=== PATIENT | male | born 1985 | race Two or more races ===

== ENCOUNTER 2020-04-27 11:38 | Outpatient (REF) | payer OTHER, SELFPAY ==
[2020-04-27 12:56] LABS: Alanine Aminotransferase 82 U/L (0-40); Albumin Level 4.8 g/dL (3.5-5.0); Alkaline Phosphatase 64 U/L (39-117); Anion Gap 13 (12-20); Aspartate Amino Transferase 39 U/L (5-37); Bilirubin Total 0.7 mg/dL (0.0-1.0); Blood Urea Nitrogen 17 mg/dL (9-16); Calcium 9.6 mg/dL (8.4-10.2); Carbon Dioxide 29 mmol/L (22-29); Chloride 103 mmol/L (96-108); Estimated Glomerular Filt Rate > 60; Glucose Fasting 92 mg/dL (60-99); Potassium 4.7 mmol/l (3.3-5.1); Sodium 140 mmol/L (135-145); Total Protein 7.8 g/dL (6.5-8.0)
[2020-04-27 13:13] LABS: Estimated Average Glucose 94 mg/dL; Hemoglobin A1c % 4.9 %
[2020-04-27 13:19] LABS: TSH reflex Free T4 0.81 mIU/mL (0.32-4.0)
== END 2020-04-27 11:39 | disposition home or self-care (01) ==
LOC: HO.LAB 11:38
PROVIDERS: PCP Physician Assistant; Visit Provider Physician Assistant
DX: Z20.828 Contact with and (suspected) exposure to other viral communicable diseases (principal); G47.00 Insomnia, unspecified; K21.9 Gastro-esophageal reflux disease without esophagitis; F32.9 Major depressive disorder, single episode, unspecified; M96.1 Postlaminectomy syndrome, not elsewhere classified; Z13.1 Encounter for screening for diabetes mellitus; Z13.29 Encounter for screening for other suspected endocrine disorder
CPT/HCPCS: 80053; 83036; 84443; 87635

== ENCOUNTER 2020-04-28 04:50 | Outpatient (REF) | payer OTHER, SELFPAY | END 2020-04-28 04:51 | disposition home or self-care (01) | LOC: HO.LAB 04:50 | PROVIDERS: PCP Physician Assistant; Visit Provider Internal Medicine | DX: Z20.828 Contact with and (suspected) exposure to other viral communicable diseases (principal) | CPT/HCPCS: 87635 ==

== ENCOUNTER 2020-06-28 09:03 | Outpatient (REF) | payer OTHER, SELFPAY ==
[2020-06-28 10:18] LABS: Alanine Aminotransferase 84 U/L (0-40); Albumin Level 4.5 g/dL (3.5-5.0); Alkaline Phosphatase 57 U/L (39-117); Anion Gap 10 (12-20); Aspartate Amino Transferase 39 U/L (5-37); Bilirubin Total 0.5 mg/dL (0.0-1.0); Blood Urea Nitrogen 15 mg/dL (9-16); Calcium 9.1 mg/dL (8.4-10.2); Carbon Dioxide 28 mmol/L (22-29); Chloride 104 mmol/L (96-108); Estimated Glomerular Filt Rate > 60; Glucose Fasting 92 mg/dL (60-99); Potassium 4.2 mmol/l (3.3-5.1); Sodium 138 mmol/L (135-145); Total Protein 7.3 g/dL (6.5-8.0)
[2020-06-28 10:43] LABS: Estimated Average Glucose 100 mg/dL; Hemoglobin A1c % 5.1 %
== END 2020-06-28 09:04 | disposition home or self-care (01) ==
LOC: HO.LAB 09:03
PROVIDERS: PCP Physician Assistant; Visit Provider Physician Assistant
DX: R79.89 Other specified abnormal findings of blood chemistry (principal); Z13.1 Encounter for screening for diabetes mellitus
CPT/HCPCS: 80053; 83036

== ENCOUNTER 2020-07-20 08:15 | Outpatient (REF) | payer OTHER, SELFPAY ==
--- NOTE | 2020-07-20 08:18 | EMG_ITS ---
Bilateral tibial and peroneal motor studies were performed. Bilateral superficial peroneal and sural sensory studies were performed. Tibial H reflexes were obtained and paraspinal muscles were tested with a needle. IMPRESSION: Other than mild bilateral superficial sensory neuropathy, no significant abnormality was noted on this study. MD IRMA Blackburn/BRUCE / [id number]
== END 2020-07-20 08:16 | disposition home or self-care (01) ==
LOC: HO.NEURO 08:15
PROVIDERS: Visit Provider Physician Assistant
DX: M96.1 Postlaminectomy syndrome, not elsewhere classified (principal); R29.898 Other symptoms and signs involving the musculoskeletal system
CPT/HCPCS: 95886; 95911

== ENCOUNTER → 2020-07-24 08:47 | Outpatient (BNVA) | payer OTHER, SELFPAY | PROVIDERS: PCP Physician Assistant; Visit Provider Physician Assistant ==

== ENCOUNTER → 2020-08-17 10:07 | Outpatient (BNVA) | payer OTHER, SELFPAY | PROVIDERS: PCP Physician Assistant; Visit Provider Surgery Vascular Surgery | DX: I73.9 Peripheral vascular disease, unspecified (principal) | CPT/HCPCS: 99202 ==

== ENCOUNTER 2020-08-24 12:44 | Outpatient (REF) | payer OTHER, SELFPAY ==
--- NOTE | ~2020-08-24 | US_ITS ---
EXAMINATION: COLOR-FLOW DUPLEX IMAGING OF THE BILATERAL LOWER EXTREMITY ARTERIAL SYSTEM. VELOCITY MEASUREMENTS THROUGHOUT THE FEMORAL ARTERIES WITH ANKLE-BRACHIAL PERIPHERAL ARTERIAL TESTING. CLINICAL INFORMATION: This is a 35-year-old male with bilateral peripheral vascular disease. Interventional Radiologist: Robbie El M.D., F.S.I.R., F.A.C.R. RIGHT FEMORAL RUNOFF VELOCITIES: The right common femoral artery measures 145 cm/s and triphasic. The right profunda femoral artery is 92 cm/s and is triphasic. Right proximal superficial femoral artery measures 123 cm/s and triphasic. Mid superficial femoral artery is 130 cm/s and triphasic. Distal right superficial femoral artery measures 99 cm/s and is triphasic. Right popliteal velocity measures 67 cm/s and is triphasic. The posterior tibial artery velocity measures 82 cm/s and was triphasic. The right ankle-brachial index is 1.14. LEFT FEMORAL RUNOFF VELOCITIES: The left common femoral artery measures 116 cm/s and triphasic. The left profunda femoral artery is 105 cm/s and is triphasic. Left proximal superficial femoral artery measures 116 cm/s and triphasic. Mid superficial femoral artery is 105 cm/s and triphasic. Distal left superficial femoral artery measures 104 cm/s and is triphasic. Left popliteal velocity measures 63 cm/s and is triphasic. The posterior tibial artery velocity measures 93 cm/s and was triphasic. The left ankle brachial index is 1.19. US/US VARSHA complete IMPRESSION: 1. Normal bilateral resting peripheral arterial testing without evidence of hemodynamically significant stenosis.
--- NOTE | ~2020-08-24 | US_ITS ---
EXAMINATION: COLOR-FLOW DUPLEX IMAGING OF THE BILATERAL LOWER EXTREMITY ARTERIAL SYSTEM. VELOCITY MEASUREMENTS THROUGHOUT THE FEMORAL ARTERIES WITH ANKLE-BRACHIAL PERIPHERAL ARTERIAL TESTING. CLINICAL INFORMATION: This is a 35-year-old male with bilateral peripheral vascular disease. Interventional Radiologist: Robbie El M.D., F.S.I.R., F.A.C.R. RIGHT FEMORAL RUNOFF VELOCITIES: The right common femoral artery measures 145 cm/s and triphasic. The right profunda femoral artery is 92 cm/s and is triphasic. Right proximal superficial femoral artery measures 123 cm/s and triphasic. Mid superficial femoral artery is 130 cm/s and triphasic. Distal right superficial femoral artery measures 99 cm/s and is triphasic. Right popliteal velocity measures 67 cm/s and is triphasic. The posterior tibial artery velocity measures 82 cm/s and was triphasic. The right ankle-brachial index is 1.14. LEFT FEMORAL RUNOFF VELOCITIES: The left common femoral artery measures 116 cm/s and triphasic. The left profunda femoral artery is 105 cm/s and is triphasic. Left proximal superficial femoral artery measures 116 cm/s and triphasic. Mid superficial femoral artery is 105 cm/s and triphasic. Distal left superficial femoral artery measures 104 cm/s and is triphasic. Left popliteal velocity measures 63 cm/s and is triphasic. The posterior tibial artery velocity measures 93 cm/s and was triphasic. The left ankle brachial index is 1.19. US/US arterial duplex LE BI IMPRESSION: 1. Normal bilateral resting peripheral arterial testing without evidence of hemodynamically significant stenosis.
== END 2020-08-24 12:45 | disposition home or self-care (01) ==
LOC: HO.US 12:44
PROVIDERS: Visit Provider Surgery Vascular Surgery
DX: I70.213 Atherosclerosis of native arteries of extremities with intermittent claudication, bilateral legs (principal)
CPT/HCPCS: 93923; 93925

== ENCOUNTER 2020-08-28 08:32 | Outpatient (REF) | payer OTHER, SELFPAY ==
--- NOTE | 2020-08-30 08:49 | MHC.AU.P13 ---
Adult Audiological Evaluation Date of Visit: 08/28/20 Candy [place] Attendant Used: Not Applicable Reason for Appointment: Audiologic evaluation due to question of hearing loss and long-standing history of ear pain. Does patient feel they have a hearing loss?: Yes If Yes, Which Ear?: Both Ears When Was Hearing Difficulty First Noticed?: Childhood Has hearing been tested previously?: No Hearing Handicap Inventory: HHIE SCORE: 28 Based on HHIE score, patient has: Severe perceived hearing handicap Ear History: Recent Ear Pain: Both Ears Family History of Hearing Loss?: Yes: Grandmother Ear Infections in Childhood: Both Ears Bothersome Tinnitus/Ringing/Noises in Ears: Both Ears Ear used on the phone: Right Ear Blocked/Full Sensation in Ear(s): Both Ears History of occupational noise exposure?: No History: History: No Medical History: Medical History: Heart Problems High Blood Pressure Medical History: Multiple Ventricular Ablations *EXPERIENCES CONSTANT CONGESTION AND THROAT CLEARING *EXPERIENCING SIGNIFICANT BILATERAL EAR PAIN WHICH IS MAKING SLEEPING DIFFICULT. Ear pain and hearing difficulties first started as a child when swimming very deep. August describes what appears to be tympanic membrane perforations from the pressure change. Following the episode he developed several ear ear infections. Medication List: Tramadol, Escitalopram, Cyclobenzaprine, Gabapentin, Hydroxyzine, Ibuprophen, Trazadone Otoscopy: Right Ear: Dull Tympanic Membrane Left Ear: Dull Tympanic Membrane Tympanometry: Tympanometry performed due to: To assess integrity of the middle ear system Right Ear: Normal Middle Ear System (Type A) Left Ear: Normal Middle Ear System (Type A) Otoacoustic Emissions Frequency Range Used: 1.6-8 kHz Right Ear Results: Present Emissions Analysis: Present emissions suggest normal cochlear function Rules out peripheral hearing loss greater than a mild degree Left Ear Results: Present Emissions Analysis: Present emissions suggest normal cochlear function Rules out peripheral hearing loss greater than a mild degree Hearing Evaluation: Transducer(s) Used: Insert Earphones Bone Conduction Method: Conventional Audiometry Stimuli Used: Pure Tones Right Ear: Description of Hearing: Normal hearing thresholds 250-8000 Hz Left Ear: Description of Hearing: Normal hearing thresholds 250-8000 Hz Speech Recognition Threshold (SRT): Method Used: Monitored Live Voice Stimuli Used: Spondee Words Right Ear: 10 dB HL Left Ear: 10 dB HL Word Discrimination: Method: Recorded Lists Word Lists Used: NU-6 Right Ear: 100% at 50 dB HL Left Ear: 92% at 50 dB HL Comparison: Compared to the most recent evaluation: N/A Interpretation of Results: Normal hearing thresholds as well as normal middle ear and cochlear function bilaterally. Recommendations: No further audiological action is indicated at this time. Referral to Ear, Nose, and Throat specialist to further assess cause of chronic ear pain Diagnosis: Primary Diagnosis: H93.293 Abnormal Auditory Perception Secondary Diagnosis: H93.13 Tinnitus, Bilateral Services Performed: Comprehensive Audiological Evaluation (CPT 50521) Diagnostic Otoacoustic Emissions (CPT 96429, 26+TC) Tympanometry (CPT 32101) Signature: Provider: Cornelia Rowe, CCC-A
== END 2020-08-28 08:33 | disposition home or self-care (01) ==
LOC: HO.SH 08:32
PROVIDERS: Visit Provider Physician Assistant
DX: H93.293 Other abnormal auditory perceptions, bilateral (principal); H93.13 Tinnitus, bilateral
CPT/HCPCS: 92557; 92567; 92588

== ENCOUNTER 2020-08-31 09:49 | Outpatient (REF) | payer OTHER, SELFPAY ==
--- NOTE | 2020-08-31 10:09 | ECG_ITS ---
Test Reason : PREOP Blood Pressure : / mmHG Vent. Rate : 075 BPM Atrial Rate : 075 BPM P-R Int : 160 ms QRS Dur : 090 ms QT Int : 374 ms P-R-T Axes : 025 042 038 degrees QTc Int : 417 ms Normal sinus rhythm Normal ECG When compared with ECG of 14-OCT-2019 19:23, No significant change was found Referred By: Christiano Hernandez Electronically Signed By:RUFINA SIMS MD
[2020-08-31 10:39] LABS: Hematocrit 43.7 % (42-52); Hemoglobin 14.9 g/dl (14.0-18.0); Mean Corpuscular HGB Conc 34.1 g/dl (31.0-36.0); Mean Corpuscular Hemoglobin 31.6 pg (27.0-33.0); Mean Corpuscular Volume 92.8 fL (80-98); Mean Platelet Volume 10.8 fL (9.4-12.4); Platelet Count 188 X10*3/uL (160-400); Red Blood Count 4.71 X10*6/uL (4.60-5.80); Red Cell Distribution Width 12.2 % (11.0-16.0); White Blood Count 6.6 X10*3/uL (4.8-10.8)
[2020-08-31 11:00] LABS: Glucose Urine UA NEG (NEG); Leukocyte Esterase Urine NEG (NEG); Nitrite Urine NEG (NEG); Specific Gravity - Urine 1.025 (1.005-1.025); Urine Blood NEG (NEG); Urine Ketones NEG (NEG); Urine Protein NEG (NEG-TRACE)
[2020-08-31 11:10] LABS: Alanine Aminotransferase 104 U/L (0-40); Albumin Level 4.5 g/dL (3.5-5.0); Alkaline Phosphatase 64 U/L (39-117); Anion Gap 12 (12-20); Aspartate Amino Transferase 41 U/L (5-37); Bilirubin Direct 0.2 mg/dL (0.0-0.5); Bilirubin Total 0.4 mg/dL (0.0-1.0); Blood Urea Nitrogen 17 mg/dL (9-16); Calcium 9.1 mg/dL (8.4-10.2); Carbon Dioxide 28 mmol/L (22-29); Chloride 106 mmol/L (96-108); Cholesterol 147 mg/dL; Estimated Glomerular Filt Rate > 60; Glucose Random 96 mg/dL (60-115); HDL Cholesterol 36 mg/dL; LDL Cholesterol Calculated 92 mg/dl; Potassium 4.5 mmol/L (3.3-5.1); Sodium 141 mmol/L (135-145); Total Protein 7.4 g/dL (6.5-8.0); Triglycerides 99 mg/dL
[2020-08-31 11:11] LABS: Appearance Urine CLEAR; Color Urine YELLOW
[2020-08-31 11:17] LABS: HBS Num1 13.31 mIU/mL (0-7.99); HBc Num1 0.04 S/CO (0.00-0.79); Hepatitis A Antibody IgM 0.13 Index (0-0.79); Hepatitis B Core Antibody Nonreactive (Nonreactive); ~HepC Num1 1.56 S/CO (0.00-0.79); ~Hepatitis A Antibody IgM Nonreactive (Nonreactive); ~Hepatitis B Surface Antibody REACTIVE (Nonreactive); ~Hepatitis C Antibody Reactive (Nonreactive)
[2020-08-31 11:19] LABS: HBsAGNum1 0.17 S/CO (0.00-0.99); Hepatitis B Surface Antigen Negative (Negative)
[2020-09-01 13:43] LABS: Alpha 1 Anti-trypsin 107 mg/dL (83-199); Ceruloplasmin 27 mg/dL (18-36)
[2020-09-01 14:52] LABS: Anti Nuclear Antibody Screen NEGATIVE (NEGATIVE)
[2020-09-04 10:46] LABS: Mitochondrial Antibodies NEGATIVE (NEGATIVE)
[2020-09-07 00:12] LABS: Smooth Muscle Antibody <20 U (<20)
== END 2020-08-31 09:50 | disposition home or self-care (01) ==
LOC: HO.LAB 09:49
PROVIDERS: Physician Assistant; PCP Physician Assistant; Visit Provider Physician Assistant
DX: Z01.818 Encounter for other preprocedural examination (principal); I10 Essential (primary) hypertension; R74.01 Elevation of levels of liver transaminase levels; R74.8 Abnormal levels of other serum enzymes; R79.89 Other specified abnormal findings of blood chemistry; K76.0 Fatty (change of) liver, not elsewhere classified; R10.11 Right upper quadrant pain; R30.0 Dysuria
CPT/HCPCS: 36415; 80048; 80061; 80076; 81003; 82103; 82390; 85027; 85610; 86038; 86039; 86255; 86256; 86704; 86706; 86709; 86803; 87340; 93005

== ENCOUNTER → 2020-09-05 10:23 | Outpatient (BNVA) | payer OTHER, SELFPAY | PROVIDERS: PCP Physician Assistant; Visit Provider Surgery Vascular Surgery | DX: I73.9 Peripheral vascular disease, unspecified (principal) | CPT/HCPCS: 99212 ==

== ENCOUNTER → 2020-09-21 09:32 | Outpatient (BNVA) | payer OTHER, SELFPAY | PROVIDERS: PCP Physician Assistant; Visit Provider Physician Assistant | DX: R74.01 Elevation of levels of liver transaminase levels (principal); R74.8 Abnormal levels of other serum enzymes; R79.89 Other specified abnormal findings of blood chemistry; K76.0 Fatty (change of) liver, not elsewhere classified; R10.11 Right upper quadrant pain; K21.9 Gastro-esophageal reflux disease without esophagitis ==

== ENCOUNTER 2021-01-18 01:45 | Emergency (ER) | payer OTHER, SELFPAY ==
--- NOTE | ~2021-01-18 | XR_ITS ---
EXAMINATION: XR SHOULDER, RIGHT CLINICAL INFORMATION: Pain, limited range of motion COMPARISON: 08/15/2018 TECHNIQUE: Three views of the right shoulder. FINDINGS: Glenohumeral alignment is anatomic. No acute fracture is seen. The acromioclavicular joint appears intact. XR/XR shoulder RT min 2V IMPRESSION: No acute findings.
[2021-01-18 01:46] VITALS: BP 108/76; PULSE 70; RESP 18; TEMP 37; O2SAT 97; BMI 30.7
--- NOTE | 2021-01-18 03:09 | ED.EXTPRO ---
HPI - Extremity Problem General Chief complaint: Extremity Injury, Upper Stated complaint: dislocated shoulder Time Seen by Provider: 01/18/21 03:09 Source: patient Mode of arrival: ambulatory History of Present Illness HPI Narrative: 36-year-old male who presents with right shoulder pain that is atraumatic in nature and has been evaluated multiple times most recently by MRI at [facility] without significant findings. Patient denies any numbness, tingling, weakness to the hand states that comes across his left shoulder, however in triage patient stated that his right shoulder dislocated after attempting to hug spouse. Related Data Home Medications Medication Instructions Recorded Confirmed loratadine 10 mg tablet 10 mg PO DAILY 04/27/20 01/17/21 Previous Rx's Medication Instructions Recorded gabapentin 600 mg tablet 600 mg PO TID 90 Days #270 tab 07/03/20 hydroxyzine pamoate 25 mg capsule 25 mg PO BID PRN 90 Days #180 cap 07/03/20 omeprazole 40 mg capsule,delayed 40 mg PO DAILY 90 Days #90 cap 09/06/20 release trazodone 100 mg tablet 100 mg PO BEDTIME 90 Days #90 tab 09/06/20 cyclobenzaprine 10 mg tablet 10 mg PO TID PRN 30 Days #90 tab 11/27/20 tramadol 50 mg tablet 50 mg PO BID PRN 7 Days #14 tab 11/27/20 ibuprofen 600 mg tablet 600 mg PO TID #90 tab 12/19/20 Allergies Allergy/AdvReac Type Severity Reaction Status Date / Time No Known Allergies Allergy Verified 01/17/21 14:10 [No Known Allergies*] Review of Systems Review of Systems: Pertinent positives and negatives as stated in HPI 10 point review of systems is otherwise negative. [facility] Past Medical History Source: nursing notes reviewed Medical History Acid reflux RLS (restless legs syndrome) Surgical History History of cholecystectomy History of coronary rotational ablation History of lumbar spinal fusion Family History Family History Father Epilepsia Multiple sclerosis Bedridden Mother HTN (hypertension) Social History Social History Household Members: None Housing: House Alcohol intake: never Patient Tobacco Use Status: Former Tobacco user e-Cigarette/Vaping Use: Never Used Second Hand Smoke Exposure: Yes Current occupational status: unemployed Current occupation: rt hand Physical Exam Vital Signs: Vital Signs: Last Vital Signs Temp 98.6 F 01/18/21 01:46 Pulse 70 01/18/21 01:46 Resp 18 01/18/21 01:46 BP 108/76 01/18/21 01:46 Pulse Ox 97 01/18/21 01:46 Body Mass Index 30.7 VITAL SIGNS: Reviewed. GENERAL: Well developed, well nourished, in no acute distress. HEAD: Normocephalic/atraumatic EYES: PERRLA, EOMI OROPHARYNX: no oral lesions noted, posterior pharynx clear LUNGS: Normal breath sounds. No adventitious sounds or accessory muscle use. SpO2<97> CARDIOVASCULAR: Regular rate and rhythm without noted murmurs ABDOMEN: Soft, non-tender, non-distended with bowel sounds. RIGHT SHOULDER: No evidence of deformity, neurovascularly intact distal no popping/clicking noted. SKIN: Inspection of the skin reveals no rashes, ulcerations, jaundice, pallor, or petechiae. NEUROLOGIC: Alert and oriented x 4. Strength and sensation to light touch were grossly intact x 4. Course Course Course Narrative: 36-year-old male with history and clinical presentation consistent with most likely arthritis of the right shoulder and review of radiographs negative for evidence of fracture or dislocation. Patient was provided with combination analgesics and lidocaine patch as well as a sling and discharged home in stable condition. Discharge Plan Discharge Clinical Impression: Shoulder pain, right Patient Disposition: Home, Self-Care Instructions: How to Use a Sling (ED), Shoulder Pain (ED) Additional Instructions: 1. Reanude todos los medicamentos caseros seg?n lo prescrito. 2. Recomiende el uso de Tylenol / ibuprofeno de venta wesly seg?n sea necesario para controlar el dolor. 3. Considere usar el parche de lidoca?na, estos tambi?n est?n disponibles sin receta, apl?quelo en el ?lico de m?ximo dolor inderjit se indica en el empaque exterior. 4. Vanna un seguimiento con wood proveedor de atenci?n primaria para conversar m?s sobre la posible fisioterapia y / o el manejo del dolor. Regrese a la rafi de emergencias por un empeoramiento daniel de los s?ntomas. Prescriptions: No Action hydroxyzine pamoate 25 mg capsule 25 mg PO BID PRN (Reason: anxiety) 90 Days Qty: 180 RF: 1 gabapentin 600 mg tablet 600 mg PO TID 90 Days Qty: 270 RF: 1 cyclobenzaprine 10 mg tablet 10 mg PO TID PRN (Reason: muscle spasm) 30 Days Qty: 90 RF: 0 tramadol 50 mg tablet 50 mg PO BID PRN (Reason: pain) 7 Days Qty: 14 RF: 1 ibuprofen 600 mg tablet 600 mg PO TID Qty: 90 RF: 1 loratadine 10 mg tablet 10 mg PO DAILY RF: 0 omeprazole 40 mg capsule,delayed release(DR/EC) 40 mg PO DAILY 90 Days Qty: 90 RF: 1 trazodone 100 mg tablet 100 mg PO BEDTIME 90 Days Qty: 90 RF: 1 Referrals: Christiano Hernandez PA-C [Primary Care Provider] - 2 days (Re-evaluation for right shoulder pain.) Interventions: ED Discharge Assessment Last Done: 01/18/21 03:46 Discharge Date/Time: 01/18/21 03:51 Print Language: Citizen Of [place]
[2021-01-18] MEDS: Lidocaine 4 % Patch ADH..PATCH 1 PATCH TRANSDERMA (03:37)
[2021-01-18] MEDS: Acetaminophen 325 MG TABLET 975 MG PO (03:37)
[2021-01-18] MEDS: Ketorolac Tromethamine 15 MG/ML VIAL IM (03:37)
== END 2021-01-18 03:51 | disposition home or self-care (01) ==
PROVIDERS: Emergency Provider Student in an Organized Health Care Education/Training Program; PCP Physician Assistant
DX: M25.511 Pain in right shoulder (principal)
CPT/HCPCS: 73030; 96372; 99283; 99284; J1885

== ENCOUNTER → 2021-01-19 15:11 | Outpatient (BNVA) | payer OTHER, SELFPAY | PROVIDERS: PCP Physician Assistant; Visit Provider Physician Assistant | DX: S43.001A Unspecified subluxation of right shoulder joint, initial encounter (principal); M75.100 Unspecified rotator cuff tear or rupture of unspecified shoulder, not specified as traumatic | CPT/HCPCS: 99202 ==

== ENCOUNTER 2021-01-25 14:10 | Outpatient (REF) | payer OTHER, SELFPAY ==
[2021-01-25 15:08] LABS: Estimated Average Glucose 103 mg/dL; Hemoglobin A1c % 5.2 %
[2021-01-25 15:21] LABS: Alanine Aminotransferase 120 U/L (0-40); Albumin Level 4.5 g/dL (3.5-5.0); Alkaline Phosphatase 64 U/L (39-117); Anion Gap 9 (12-20); Aspartate Amino Transferase 49 U/L (5-37); Bilirubin Total 0.8 mg/dL (0.0-1.0); Blood Urea Nitrogen 14 mg/dL (9-16); Calcium 9.4 mg/dL (8.4-10.2); Carbon Dioxide 26 mmol/L (22-29); Chloride 108 mmol/L (96-108); Estimated Glomerular Filt Rate > 60; Glucose Fasting 96 mg/dL (60-99); Potassium 4.2 mmol/L (3.3-5.1); Sodium 139 mmol/L (135-145); Total Protein 7.5 g/dL (6.5-8.0)
== END 2021-01-25 14:11 | disposition home or self-care (01) ==
LOC: HO.LAB 14:10
PROVIDERS: PCP Physician Assistant; Visit Provider Physician Assistant
DX: Z13.1 Encounter for screening for diabetes mellitus (principal)
CPT/HCPCS: 36415; 80053; 83036

== ENCOUNTER 2021-02-02 10:22 | Outpatient (REF) | payer OTHER, SELFPAY ==
[2021-02-03 16:31] LABS: HCV RNA PCR Qn <1.18 NOT DETECTED Log IU/mL (NOT DETECTED); HCV RNA PCR Qn <15 NOT DETECTED IU/mL (NOT DETECTED)
== END 2021-02-02 10:23 | disposition home or self-care (01) ==
LOC: HO.LAB 10:22
PROVIDERS: PCP Physician Assistant; Visit Provider Physician Assistant
DX: R74.01 Elevation of levels of liver transaminase levels (principal); B19.20 Unspecified viral hepatitis C without hepatic coma
CPT/HCPCS: 36415; 87902

== ENCOUNTER → 2021-02-08 08:50 | Outpatient (BNVA) | payer OTHER, SELFPAY | PROVIDERS: PCP Physician Assistant; Visit Provider Physician Assistant | DX: S43.001D Unspecified subluxation of right shoulder joint, subsequent encounter (principal); M75.100 Unspecified rotator cuff tear or rupture of unspecified shoulder, not specified as traumatic | CPT/HCPCS: 99212 ==

== ENCOUNTER → 2021-02-21 09:24 | Outpatient (BNVA) | payer OTHER, SELFPAY | PROVIDERS: PCP Physician Assistant; Visit Provider Physician Assistant ==

== ENCOUNTER 2021-02-23 08:37 | Outpatient (RCR) | payer OTHER, SELFPAY ==
--- NOTE | 2021-02-23 11:05 | MHC.PT.EP ---
[facility] [place] Office [place] Office [place] Office [address] Larry Magallanes [address] [phone] F: [phone] F: [phone] F: [phone] F: [phone] Physical Therapy Plan of Care Date of Evaluation: Date of Surgery: N/A Diagnosis: Unspecified subluxation of R shoulder joint Assessment: Pt is a 36yo M who presents to PT with chronic R shoulder pain since 2018. Pt presents with current impairments in pain, cervical and shoulder ROM, strength, soft tissue restrictions, and posture. He is limited functionally by sleeping, reaching, lifting, and ADLs. Xray was negative for fracture or dislocation. MRI revealed low-grade articular surface tear of the supraspinatus insertion, diffuse scar thickening of the anterior and inferior glenohumeral joint capsule with possible chronic adhesive capsulitis in the appropriate clinical setting (see imaging for details). He is a good candidate for skilled PT services to address current im pairments and facilitate return to PLOF. Frequency and Duration: The patient will be seen 2x/week for 4 weeks Short Term Goals: Pt will be I with HEP to promote self management of symptoms Pt will improve R shoulder flexion and ABD AROM by at least 5 degrees Senior Living Goals: Pt will demonstrate full ROM and strength throughout R shoulder Pt will perform ADLs with pain < 3/10 Treatment Plan: Modalities to reduce pain, spasms and effusion. Manual therapy to restore motion and function. Therapeutic exercise to improve strength and flexibility. Neuromuscular re-education for posture and balance. Therapeutic activities to return to functional activities of daily living. Electronically signed by: Ladonna Stark, PT, DPT Please sign and return to therapist. Thank you for your referral.
--- NOTE | 2021-03-05 10:48 | MHC.PT.DC ---
[facility] [place] Office [place] Office [place] Office [address] Larry Magallanes [address] [phone] F: [phone] F: [phone] F: [phone] F: [phone] Physical Therapy Discharge Report Diagnosis: Unspecified subluxation of R shoulder joint Date of Surgery: N/A Date of Evaluation: 02/23/21 Date of Discharge: 03/05/21 Treatments to Date: 1 Cancellations to Date: No Shows to Date: 2 Discharge Status: Visit Non-compliance Discharge Summary: Pt attended PT initial evaluation on 02/23/21 and has had 2 no-show's since. He is being D/C from skilled PT services per [facility] attendance policy. Pt current level of function unknown at this time. Electronically signed by: Ladonna Stark, PT, DPT Please sign and return to therapist. Thank you for your referral.
== END 2021-03-05 10:48 | disposition home or self-care (01) ==
LOC: HO.PT 08:37
PROVIDERS: PCP Physician Assistant; Visit Provider Physician Assistant
DX: M75.100 Unspecified rotator cuff tear or rupture of unspecified shoulder, not specified as traumatic (principal); S43.001A Unspecified subluxation of right shoulder joint, initial encounter
CPT/HCPCS: 97110; 97162

== ENCOUNTER 2021-03-01 07:45 | Outpatient (REF) | payer OTHER, SELFPAY ==
--- NOTE | ~2021-03-01 | US_ITS ---
EXAMINATION: US ABDOMEN COMPLETE CLINICAL INFORMATION: Abnormal levels of other serum enzymes. COMPARISON: CT abdomen and pelvis 07/28/2019. Ultrasound abdomen 07/17/2018. TECHNIQUE: Real-time imaging of the abdominal viscera. FINDINGS: PANCREAS: Obscured by overlying bowel gas. ABDOMINAL AORTA: The proximal, mid, and distal segments are normal in caliber. INFERIOR VENA CAVA: Visualized portions are normal. LIVER: There is diffusely increased echogenicity compared to renal cortex consistent with fatty infiltration. The liver is normal in size. The liver contour is normal. No focal hepatic lesion. There is no intrahepatic biliary duct dilatation seen. GALLBLADDER: Surgically absent. COMMON BILE DUCT: Prominent postcholecystectomy measuring 1.1 cm in diameter. RIGHT KIDNEY: Normal. No hydronephrosis. No renal calculi or focal parenchymal lesions. The kidney measures 10.1 cm in maximum dimension. LEFT KIDNEY: Normal. No hydronephrosis. No renal calculi or focal parenchymal lesions. The kidney measures 10.3 cm in maximum dimension. SPLEEN: Normal. The spleen measures 11.2 cm in maximum dimension. FREE FLUID: None. US/US abdomen complete IMPRESSION: Fatty infiltration of the liver.
[2021-03-01 08:48] LABS: MANUAL DIFF FLAG NO
[2021-03-01 09:08] LABS: Basophils Percent Auto 0.1 % (0-2); Eosinophils Absolute Auto 0.1 X10*3/uL (0.0-0.4); Eosinophils Percent Auto 1.1 % (0-4); Hematocrit 42.4 % (42-52); Hemoglobin 14.3 g/dl (14.0-18.0); Imm Gran Abs Auto 0.01 X10*3/uL (0.00-0.03); Imm Gran Pct Auto 0.1 % (0.0-0.4); Lymphocytes Absolute Auto 3.3 X10*3/uL (1.2-4.9); Mean Corpuscular HGB Conc 33.7 g/dl (31.0-36.0); Mean Corpuscular Hemoglobin 31.2 pg (27.0-33.0); Mean Corpuscular Volume 92.4 fL (80-98); Mean Platelet Volume 10.2 fL (9.4-12.4); Monocytes Absolute Auto 0.6 X10*3/uL (0.1-1.2); Monocytes Percent Auto 8.6 % (2-11); Neutrophils Absolute Auto 3.2 X10*3/uL (2.0-8.3); Neutrophils Percent Auto 44.1 % (45-73); Platelet Count 176 X10*3/uL (160-400); Red Blood Count 4.59 X10*6/uL (4.60-5.80); White Blood Count 7.2 X10*3/uL (4.8-10.8)
[2021-03-01 09:29] LABS: Cholesterol 157 mg/dL; HDL Cholesterol 35 mg/dL; LDL Cholesterol Calculated 102 mg/dl; Triglycerides 100 mg/dL
[2021-03-06 00:32] LABS: FIB-ALT 142 U/L (9-46); FIB-Alpha-2-Macroglobulin 141 mg/dL (106-279); FIB-Apolipoprotein A1 121 mg/dL (94-176); FIB-GGT 32 U/L (3-90); FIB-Haptoglobin 59 mg/dL (43-212); FIB-Total Bilirubin 0.5 mg/dL (0.2-1.2); Liver Fibrosis Score 0.17; Liver Fibrosis Stage F0; Nec Inflam Act Grade A3; Nec Inflam Act Score 0.66
[2021-03-06 10:27] LABS: HCV RNA PCR Qn <1.18 NOT DETECTED Log IU/mL (NOT DETECTED); HCV RNA PCR Qn <15 NOT DETECTED IU/mL (NOT DETECTED)
== END 2021-03-01 07:46 | disposition home or self-care (01) ==
LOC: HO.US 07:45
PROVIDERS: Absent Provider Physician Assistant; PCP Physician Assistant; Visit Provider Physician Assistant
DX: R74.8 Abnormal levels of other serum enzymes (principal); K62.5 Hemorrhage of anus and rectum; K76.0 Fatty (change of) liver, not elsewhere classified; R74.01 Elevation of levels of liver transaminase levels; B19.20 Unspecified viral hepatitis C without hepatic coma
CPT/HCPCS: 36415; 76700; 80061; 81596; 85025; 87522; 87902

== ENCOUNTER → 2021-03-21 09:05 | Outpatient (BNVA) | payer OTHER, SELFPAY | PROVIDERS: Visit Provider Physician Assistant | DX: S43.001D Unspecified subluxation of right shoulder joint, subsequent encounter (principal) | CPT/HCPCS: 99212 ==

== ENCOUNTER → 2021-04-02 15:08 | Outpatient (BNVA) | payer OTHER, SELFPAY | PROVIDERS: Visit Provider Anesthesiology | DX: M47.816 Spondylosis without myelopathy or radiculopathy, lumbar region (principal); M47.819 Spondylosis without myelopathy or radiculopathy, site unspecified; G89.4 Chronic pain syndrome; G60.9 Hereditary and idiopathic neuropathy, unspecified | CPT/HCPCS: 99212 ==

== ENCOUNTER 2021-04-02 18:52 | Emergency (ER) | payer OTHER, SELFPAY ==
--- NOTE | ~2021-04-02 | XR_ITS ---
EXAMINATION: PORTABLE CHEST 1 VIEW CLINICAL INFORMATION: COUGH . COMPARISON: 10/14/2019. TECHNIQUE: Portable frontal view of the chest was obtained. FINDINGS: The lungs are mildly hypoexpanded. No focal infiltrate, effusion, edema, or pneumothorax. Cardiac and mediastinal silhouettes are within normal limits for technique. No acute bony abnormality seen. XR/XR chest 1V IMPRESSION: No evidence of acute disease.
[2021-04-02 20:36] VITALS: BP 115/76; PULSE 79; RESP 16; TEMP 36.9; O2SAT 98; BMI 30.9
[2021-04-02 20:40] LABS: COVID-19 Test Negative (Negative)
--- NOTE | 2021-04-02 21:36 | ED_ITS ---
HPI - URI/Sore Throat General Chief Complaint: Upper Respiratory Symptoms Stated Complaint: headache cough Time Seen by Provider: 04/02/21 21:36 Source: patient Mode of arrival: ambulatory Limitations: no limitations History of Present Illness HPI Narrative: patient developed headache and coughing yesterday. His partner tested negative for COVID. MD elicited complaint: cough Onset (ago): day(s) Consistency: constant Severity: mild Context: sick contacts Associated symptoms: denies other symptoms Related Data Home Medications Medication Instructions Recorded Confirmed loratadine 10 mg tablet 10 mg PO DAILY 04/27/20 04/02/21 escitalopram oxalate 10 mg tablet 10 mg PO DAILY 02/21/21 04/02/21 hydroxyzine pamoate 50 mg capsule 50 mg PO DAILY PRN 03/09/21 04/02/21 Previous Rx's Medication Instructions Recorded gabapentin 600 mg tablet 600 mg PO TID 90 Days #270 tab 07/03/20 omeprazole 40 mg capsule,delayed 40 mg PO DAILY 90 Days #90 cap 09/06/20 release trazodone 100 mg tablet 100 mg PO BEDTIME 90 Days #90 tab 09/06/20 cyclobenzaprine 10 mg tablet 10 mg PO TID PRN 30 Days #90 tab 11/27/20 tramadol 50 mg tablet 50 mg PO BID PRN 7 Days #14 tab 11/27/20 ibuprofen 600 mg tablet 600 mg PO TID #90 tab 12/19/20 Allergies Allergy/AdvReac Type Severity Reaction Status Date / Time No Known Allergies Allergy Verified 04/02/21 15:28 [No Known Allergies*] Review of Systems Constitutional: Constitutional: Reports no additional constitutional complaints Eyes: Eyes: Reports no additional eye complaints ENT: Denies dizziness Cardiovascular: Cardiovascular: Reports no additional cardiovascular complaints Respiratory: Respiratory: Reports as per HPI Gastrointestinal: Gastrointestinal: Reports no additional gastrointestinal complaints Musculoskeletal: Musculoskeletal: Reports no additional musculoskeletal complaints Integumentary/Breasts: Skin/Breast: Denies rash Neurologic: Reports system reviewed and no additional complaints, except as documented, Denies dizziness and Denies Sensory deficit (Neuro) Psychiatric: Psychiatric: Denies anxiety [facility] Past Medical History Medical History (Updated 04/02/21 @ 21:41 by Armando Fields MD) Acid reflux Arthropathy of facet joint Chronic pain syndrome Idiopathic polyneuropathy NAFLD (nonalcoholic fatty liver disease) RLS (restless legs syndrome) Spondylosis of lumbar spine Surgical History History of cholecystectomy History of coronary rotational ablation History of esophagogastroduodenoscopy (EGD) History of lumbar spinal fusion Hx of colonoscopy Family History Family History Father Epilepsia Multiple sclerosis Bedridden Mother HTN (hypertension) Social History Social History Household Members: None Housing: House Alcohol intake: never Patient Tobacco Use Status: Former Tobacco user e-Cigarette/Vaping Use: Never Used Second Hand Smoke Exposure: Yes Advance Directives: No service: No Current occupational status: unemployed Current occupation: rt hand Physical Exam Vital Signs: Vital Signs: Last Vital Signs Temp 98.5 F 04/02/21 20:36 Pulse 79 04/02/21 20:36 Resp 16 04/02/21 20:36 BP 115/76 04/02/21 20:36 Pulse Ox 98 04/02/21 20:36 Body Mass Index 30.9 Neuro: Sensory Exam: No Sensory deficit (Neuro) Course Reevaluation(s) Reevaluation #1: patient with mild symptoms, not as sick as his girlfriend. He is resting comfortably Time: 21:40 MDM - URI/Sore Throat Lab Data Labs: Lab Results 04/02/21 Range/Units 20:13 COVID-19 ([facility]BER) Negative (Negative) COVID-19 Clin Com See Note Imaging Data Chest x-ray: Radiologist's impression: no infiltrate Discharge Plan Discharge Clinical Impression: Upper respiratory infection Patient Disposition: Home, Self-Care Instructions: Upper Respiratory Infection (ED) Prescriptions: No Action gabapentin 600 mg tablet 600 mg PO TID 90 Days Qty: 270 RF: 1 cyclobenzaprine 10 mg tablet 10 mg PO TID PRN (Reason: muscle spasm) 30 Days Qty: 90 RF: 0 tramadol 50 mg tablet 50 mg PO BID PRN (Reason: pain) 7 Days Qty: 14 RF: 1 ibuprofen 600 mg tablet 600 mg PO TID Qty: 90 RF: 1 loratadine 10 mg tablet 10 mg PO DAILY RF: 0 omeprazole 40 mg capsule,delayed release(DR/EC) 40 mg PO DAILY 90 Days Qty: 90 RF: 1 trazodone 100 mg tablet 100 mg PO BEDTIME 90 Days Qty: 90 RF: 1 hydroxyzine pamoate 50 mg capsule 50 mg PO DAILY PRNRF: 0 escitalopram oxalate 10 mg tablet 10 mg PO DAILY RF: 0 Referrals: Physician,Unknown [Primary Care Provider] - 1 week
[2021-04-02 21:58] VITALS: BP 142/73; PULSE 86; RESP 18; TEMP 36.6; O2SAT 97
--- NOTE | 2021-04-02 21:59 | PC.NURSE ---
Pt alert and oriented x4, calm and cooperative. Pt denies pain, ready for dc. No IV in place. Educated on dc and ambulated out to private car.
== END 2021-04-02 22:01 | disposition home or self-care (01) ==
PROVIDERS: Emergency Provider Emergency Medicine
DX: J06.9 Acute upper respiratory infection, unspecified (principal); R51.9 Headache, unspecified; R05 Cough; Z20.822 Contact with and (suspected) exposure to COVID-19; Z79.899 Other long term (current) drug therapy; Z87.891 Personal history of nicotine dependence
CPT/HCPCS: 36415; 71045; 87635; 99283; 99285

== ENCOUNTER → 2021-04-26 13:27 | Outpatient (BNVA) | payer OTHER, SELFPAY | PROVIDERS: PCP Physician Assistant; Visit Provider Physician Assistant | DX: G89.4 Chronic pain syndrome (principal); M75.100 Unspecified rotator cuff tear or rupture of unspecified shoulder, not specified as traumatic; S43.001A Unspecified subluxation of right shoulder joint, initial encounter; X58.XXXA Exposure to other specified factors, initial encounter; Y93.9 Activity, unspecified; Y92.9 Unspecified place or not applicable; Y99.8 Other external cause status | CPT/HCPCS: 99212 ==

== ENCOUNTER 2021-05-10 16:34 | Outpatient (REF) | payer OTHER, SELFPAY ==
[2021-05-10 17:22] LABS: Influenza A PCR NEGATIVE (Negative); Influenza B PCR NEGATIVE (Negative); Resp Syncy Virus RNA Qual PCR NEGATIVE (Negative); SARS COV2 PCR INHOUSE NEGATIVE (Negative)
== END 2021-05-10 16:35 | disposition home or self-care (01) ==
LOC: HO.LNP 16:34
PROVIDERS: Visit Provider Physician Assistant
DX: Z20.822 Contact with and (suspected) exposure to COVID-19 (principal); J06.9 Acute upper respiratory infection, unspecified
CPT/HCPCS: 0241U

== ENCOUNTER 2021-05-23 07:01 | Day surgery (SDC) | payer OTHER, SELFPAY ==
[2021-05-17 10:33] VITALS: BMI 28.1
--- NOTE | 2021-05-22 13:29 | HO.ANESPROP2 ---
Documented by User: Janet Haque NP 05/22/21 13:30 HPI - Anesthesia Eval Consult details Narrative: 36yo M for Right Shoulder Arthroscopy, Possible Rotator Cuff Repair, Possible Bicep Tenodesis [facility] Active Problems Active Problems: All Active Problems (Updated 05/21/21 @ 13:40 by Christiano Hernandez PA-C) Obese (Acute) Annual physical exam (Acute) Polyarthralgia (Acute) Failed back syndrome of lumbar spine (Acute) MDD (major depressive disorder) (Acute) GERD without esophagitis (Acute) Insomnia (Acute) Screening for diabetes mellitus (DM) (Acute) Screening for hypothyroidism (Acute) Exposure to COVID-19 virus (Acute) Weakness of lower extremity (Acute) Elevated liver enzymes (Acute) Decreased hearing of both ears (Acute) PVD (peripheral vascular disease) (Acute) Pre-op evaluation (Acute) Pterygium (Acute) Otalgia, right ear (Acute) Chronic rhinitis (Acute) Hepatitis C antibody positive in blood (Acute) GERD (gastroesophageal reflux disease) (Acute) Lumbar disc disease with radiculopathy (Acute) Screening for diabetes mellitus (DM) (Acute) Shoulder subluxation, right (Acute) Rotator cuff tear (Acute) Elevated liver enzymes (Acute) Early satiety (Acute) URI, acute (Acute) Idiopathic polyneuropathy (Acute) Arthropathy of facet joint (Acute) Chronic pain syndrome (Acute) Spondylosis of lumbar spine (Acute) NAFLD (nonalcoholic fatty liver disease) (Acute) Acid reflux (Acute) Past Medical History Medical History Acid reflux Arthropathy of facet joint Chronic pain syndrome Idiopathic polyneuropathy NAFLD (nonalcoholic fatty liver disease) RLS (restless legs syndrome) Spondylosis of lumbar spine Family History Family History Father Epilepsia Multiple sclerosis Bedridden Mother HTN (hypertension) Surgical History Surgical History History of cholecystectomy History of coronary rotational ablation History of esophagogastroduodenoscopy (EGD) History of lumbar spinal fusion Hx of colonoscopy Social History Social History Household Members: None Housing: House Alcohol intake: never Patient Tobacco Use Status: Former Tobacco user e-Cigarette/Vaping Use: Never Used Second Hand Smoke Exposure: Yes Are you DNR?: No Advance Directives: No Advance Directives Information Provided: Yes Advance Directives on File: No service: No Current occupational status: unemployed Current occupation: rt hand Meds Allergies Allergy/AdvReac Type Severity Reaction Status Date / Time No Known Allergies Allergy Verified 05/23/21 07:45 [No Known Allergies*] Home Medications Medication Instructions Recorded Confirmed Last Taken Type escitalopram oxalate 10 mg tablet 10 mg PO DAILY 02/21/21 05/21/21 Unknown History hydroxyzine pamoate 50 mg capsule 50 mg PO DAILY PRN 03/09/21 05/21/21 Unknown History ibuprofen 600 mg tablet 600 mg PO TID PRN 05/17/21 05/21/21 05/18/21 History buspirone 5 mg tablet 5 mg PO BID 05/21/21 05/21/21 Unknown History Exam Exam Date and Time: May 22, 2021 1329 Height,Weight and Vital Signs: Height 5 ft 11 in Weight 91.626 kg Pertinent Lab Results Pertinent Lab Results: Laboratory Tests 01/25/21 03/01/21 14:28 08:38 WBC 7.2 Hgb 14.3 Hct 42.4 Plt Count 176 Sodium 139 Potassium 4.2 Chloride 108 Carbon Dioxide 26 BUN 14 Creatinine 0.81 Narrative Narrative: EKG 08/2020 Vent. Rate : 075 BPM ? ? Atrial Rate : 075 BPM ?? P-R Int : 160 ms? QRS Dur : 090 ms ? ? QT Int : 374 ms ? ? ? P-R-T Axes : 025 042 038 degrees ?? QTc Int : 417 ms ? Normal sinus rhythm Normal ECG When compared with ECG of 14-OCT-2019 19:23, No significant change was found Assessment and Plan Assessment Anesthesia Assessment: Chart Reviewed Documented by User: Chad Strickland MD 05/23/21 08:04 [facility] Past Medical History Medical History Acid reflux Arthropathy of facet joint Chronic pain syndrome Idiopathic polyneuropathy NAFLD (nonalcoholic fatty liver disease) RLS (restless legs syndrome) Spondylosis of lumbar spine Family History Family History Father Epilepsia Multiple sclerosis Bedridden Mother HTN (hypertension) Family history of problems with anesthesia: No Surgical History Surgical History History of cholecystectomy History of coronary rotational ablation History of esophagogastroduodenoscopy (EGD) History of lumbar spinal fusion Hx of colonoscopy History of Problems with Anesthesia: No Social History Social History Household Members: None Housing: House Alcohol intake: never Patient Tobacco Use Status: Former Tobacco user e-Cigarette/Vaping Use: Never Used Second Hand Smoke Exposure: Yes Are you DNR?: No Advance Directives: No Advance Directives Information Provided: Yes Advance Directives on File: No service: No Current occupational status: unemployed Current occupation: rt hand Meds Allergies Allergy/AdvReac Type Severity Reaction Status Date / Time No Known Allergies Allergy Verified 05/23/21 07:45 [No Known Allergies*] Home Medications Medication Instructions Recorded Confirmed Last Taken Type escitalopram oxalate 10 mg tablet 10 mg PO DAILY 02/21/21 05/21/21 Unknown History hydroxyzine pamoate 50 mg capsule 50 mg PO DAILY PRN 03/09/21 05/21/21 Unknown History ibuprofen 600 mg tablet 600 mg PO TID PRN 05/17/21 05/21/21 05/18/21 History buspirone 5 mg tablet 5 mg PO BID 05/21/21 05/21/21 Unknown History Exam Airway Mallampati Class: III TM Dist: >3cm Neck ROM: Full Loose/Missing/Broken Teeth: Yes Heart: [id number] Lungs: cta b/l Assessment and Plan Assessment Anesthesia Assessment: Anesthesia Plan Discussed Final Anesthetic Review Family History of Problems with Anesthesia: No History of Problems with Anesthesia: No NPO: Yes ASA Class: III Final Preanesthetic Review: No Changes in Pt Med Stat, Meds/Allgs Chart Reviewed, Consent Obtained/Reviewed and Anes Risks/Benef Reviewed Patient Risk: Intermediate Procedure Risk: Intermediate Assessment/Block/Sedation in SS: Assess/Block/Sedation-SS Anesthetic Plan Anesthetic Plan: GA, Regional Block and Agree w/ Assess. and Plan Disposition: Standard PACU
[2021-05-23] VITALS (8 sets, daily range): BP systolic 128–148; BP diastolic 77–88; PULSE 92–108; RESP 16–20; TEMP 36.6–37.1; O2SAT 97–100
[2021-05-23] MEDS: Lactated Ringers 1,000 ML 100 ML IVCONT (08:08)
--- NOTE | 2021-05-23 09:29 | MHC.SHP ---
Pre-Procedural Eval Section A Date of Service: 05/23/21 The patient is an INPATIENT: No Changes since office visit: Yes Patient answered all questions; No Cold of Flu in the past 2 weeks, No New Medical Problems and No Changes in Medication The History & Physical has been completed within 30 days and I have reviewed it.: Yes Section B Chief Complaint: subluxation of shoulder Allergies: Allergies Allergy/AdvReac Type Severity Reaction Status Date / Time No Known Allergies Allergy Verified 05/23/21 07:45 [No Known Allergies*] Plan I have reviewed the history and physical and performed a pertinent physical examination on my patient. No changes have occurred unless specified.
--- NOTE | 2021-05-23 09:29 | PC.NURSE ---
Addendum entered by Analisa Torres 05/23/21 10:10: Per Dr. Strickland, the symptoms described below that the patient is experiencing are normal for the block performed. Original Note: Patient complaining of facial numbness on right side post block. When assessed, patient states I can feel sensation on shoulder, upper arm, and fingers (pointing to right side) but face and ear (pointing to right side of face and right ear) are completely numb . Patient able to talk however states it feels weird . Smile asymmetrical. During this time, all VS stable, respirations easy and regular. Dr. Strickland notified and at bedside. Patient educated further on the block performed by MD. Harris to proceed with surgery. No new orders. Patient continues to rest comfortably.
--- NOTE | 2021-05-23 11:30 | P.BOP_ITS ---
Brief Operative Note Date of Service: 05/23/21 Pre-op diagnosis: Right shoulder rotator cuff tear, partial thickness Post-op diagnosis: other (Right shoulder impingement syndrome; Right shoulder anterior interval synovitis) Procedure: Partial synovectomy and sub-acromial decompression right shoulder Implants: none Surgeon: Antonio Forrest MD Anesthesia: GETA and regional Was an Bucket Hooker used for this Procedure?: Yes Bucket Hooker: Katy Dobbs Estimated blood loss (mL): 25 IV fluids (mL): 800 Pathology: none sent Condition: stable Disposition: PACU
--- NOTE | 2021-05-23 11:35 | P.OP_ITS ---
Operative Note Operative Note Date of Service: 05/23/21 Narrative: Pre-op diagnosis: Right shoulder rotator cuff tear, partial thickness Post-op diagnosis: other (Right shoulder impingement syndrome; Right shoulder anterior interval synovitis) Procedure: Partial synovectomy and sub-acromial decompression right shoulder Implants: none Surgeon: Antonio Forrest MD Anesthesia: GETA and regional Was an Internal Audit Director used for this Procedure?: Yes Internal Audit Director: Katy Dobbs Estimated blood loss (mL): 25 IV fluids (mL): 800 Pathology: none sent Condition: stable Disposition: PACU Procedure in detail: Patient was brought to the operating room and placed the the beach chair position. All bony prominences were well padded and the limb was prepped and draped in standard sterile fashion. A time out was called to identify proper site, proper procedure and proper surgeon. IV antibiotics per weight were administered. I began by making a posterolateral stab incision with a 15 blade. A blunt trochar was placed into the glenohumeral joint and I insufflated the joint with saline and a 30 degree arthroscope was placed. I established an outside- in anterior portal just distal to the biceps tendon. I then began my inspection of the glenohumeral joint. The gelnohumeral cartilage was normal although there was a smalldivot in the humeral head superiorly that was not new. The bieps and labrum were also normal. The subscap was intact. There was synovitis in the anterior interval however. This was debrided with a wand and shaver. There was no undersurface rtc tear. I then removed the trochar and entered the subacromial space. A direct lateral portal was then established and I performed a bursectomy. The cuff was then examined. There was some low grade partial tearing of the anterior rtc cuff. An acromiplasty was performed using a bonecutter. Once I was satisfied with the decompression final images were captured and I removed all instrumentation. Portals were closed with nylon. Patient was placed in an abduction sling, extubated and brought to the recovery room in stable condition. There were no known complications.
== END 2021-05-23 13:20 | disposition home or self-care (01) ==
PROVIDERS: PCP Physician Assistant; Visit Provider Orthopaedic Surgery
PROC: (CPT 29805; principal; 2021-05-23 09:20)
DX: M75.111 Incomplete rotator cuff tear or rupture of right shoulder, not specified as traumatic (principal); M75.41 Impingement syndrome of right shoulder; M65.811 Other synovitis and tenosynovitis, right shoulder; G89.4 Chronic pain syndrome; G60.9 Hereditary and idiopathic neuropathy, unspecified; G25.81 Restless legs syndrome; Z79.899 Other long term (current) drug therapy; Z87.891 Personal history of nicotine dependence
CPT/HCPCS: 29822; 29826; J0171; J0690; J1100; J2250; J2405; J3010

== ENCOUNTER → 2021-05-28 07:27 | Outpatient (REF) | payer OTHER, SELFPAY ==
--- NOTE | ~2021-05-28 | NM_ITS ---
EXAMINATION: TX RADIONUCLIDE SOLID FOOD GASTRIC EMPTYING 4-HOUR STUDY CLINICAL INFORMATION: Early satiety, nausea and vomiting x2 years. COMPARISON: None. TECHNIQUE: A standard meal consisting of 4 oz of Egg Beaters brand tagged with 1.0 microcuries Tc-99m Sulfur Colloid, 8 oz water and 2 slices of toast with jelly was administered orally to the patient. Images were obtained using a dual head gamma camera in the anterior and posterior projections over of the stomach immediately post ingestion and at hourly intervals up to 4 hours post ingestion. The anterior and posterior counts at each time interval were averaged using the geometric mean and expressed as percentage of the immediate post ingestion counts. FINDINGS: There is good visualization of activity in the stomach immediately post ingestion. As the study progresses, there is good clearance of activity from the stomach and visualization of progressively increasing small bowel activity. By the end of the study, there is almost no retention noted in the stomach. Retention in the stomach at each time interval was: 1 hour 71% (normal 37%-90%) 2 hours 33% (normal 30%-60%) 3 hours 25% 4 hours 2% (normal 0%-10%) TX/TX gastric emptying study IMPRESSION: Normal 4-hour solid food gastric emptying study.
== END ==
LOC: HO.NUCMED 07:27
PROVIDERS: PCP Physician Assistant; Visit Provider Physician Assistant
DX: R68.81 Early satiety (principal)
CPT/HCPCS: 78264; A9541

== ENCOUNTER → 2021-06-04 12:43 | Outpatient (BNVA) | payer OTHER, SELFPAY | PROVIDERS: PCP Physician Assistant; Visit Provider Physician Assistant | DX: M75.41 Impingement syndrome of right shoulder (principal); M65.811 Other synovitis and tenosynovitis, right shoulder | CPT/HCPCS: 99212 ==

== ENCOUNTER → 2021-07-05 09:32 | Outpatient (BNVA) | payer OTHER, SELFPAY | PROVIDERS: PCP Physician Assistant; Visit Provider Orthopaedic Surgery | DX: M75.41 Impingement syndrome of right shoulder (principal) | CPT/HCPCS: 99212 ==

== ENCOUNTER 2021-07-09 10:00 | Outpatient (RCR) | payer OTHER, SELFPAY ==
[2021-06-13 11:28] LABS: Rheumatoid Factor < 15.0 IU/mL (<15.0)
[2021-06-13 11:45] LABS: Erythrocyte Sedimentation Rate 7 MM/HR (0-15)
--- NOTE | 2021-06-13 12:12 | MHC.PT.EP ---
[facility] [place] [facility] [place] [facility] [place] [facility] [address] Larry Magallanes [address] [phone] F: [phone] F: [phone] F: [phone] F: [phone] Physical Therapy Plan of Care Date of Evaluation: Date of Surgery: 05/23/21 Diagnosis: RIGHT SHOULDER SAD Assessment: LAYA IS A PLEASANT 36 YO MALE WHO PRESENTS S/P SAD 05/23/21. UPON EXAM HE PRESENTS WITH DECREASED ROM AND STRENGTH, ALTERED POSTURE AND POSITIONING AND INCREASED PAIN. FUNCTIONAL LIMITATIONS INCLUDE DECREASED ABILITY TO PERFORM ADLs AND HOMEMAKING TASKS, DECREASED ABILITY TO PERFORM LIFTING, REACHING, PUSHING, PULLING AND CARRYING. HE REPORTS DISRUPTED SLEEP AND DECREASED ABILITY TO PARTICIPATE IN RECREATIONAL AND COMMUNITY ACTIVITIES. A PT IS A GOOD CANDIDATE FOR SKILLED PT DUE TO AGE, POTENTIAL REMEDIATION OF IMPAIRMENTS, TYPICAL DISEASE/CONDITION PROGRESSION AND PROGNOSIS, COMORBIDITIES, AND MOTIVATION. PT WOULD BENEFIT FROM TAILORED PROGRAM OF THERAPEUTIC ACTIVITIES, FUNCTIONAL TRAINING, GAIT TRAINING, POSTURAL EDUCATION, NEUROMUSCULAR RE-EDUCATION, AND MODALITIES NEEDED. Frequency and Duration: The patient will be seen 2X WEEK FOR 4 WEEK Short Term Goals: Initiate HEP and promote self management of symptoms in 2 visits Custodial Goals: Full, pain free ROM in 5 weeks Full UE strength, pain free in 5 weeks To perform computer and work tasks without restriction and pain no greater than 2/10 in [address] at minimum of 5# into cabinet at shoulder height in 5 weeks Treatment Plan: Modalities to reduce pain, spasms and effusion. Manual therapy to restore motion and function. Therapeutic exercise to improve strength and flexibility. Neuromuscular re-education for posture and balance. Therapeutic activities to return to functional activities of daily living. Electronically signed by: KYLAH SALMON PT, DPT Please sign and return to therapist. Thank you for your referral.
[2021-06-15 16:36] LABS: Anti Nuclear Antibody Screen NEGATIVE (NEGATIVE)
[2021-06-15 17:13] LABS: Cyclic Citrullinated Peptide <16 UNITS
== END 2021-09-04 08:57 | disposition home or self-care (01) ==
LOC: HO.PT 10:00
PROVIDERS: Physician Assistant; Visit Provider Orthopaedic Surgery
DX: M75.111 Incomplete rotator cuff tear or rupture of right shoulder, not specified as traumatic (principal)
CPT/HCPCS: 36415; 85652; 86038; 86039; 86200; 86431; 97110; 97140; 97161

== ENCOUNTER 2021-08-10 08:41 | Day surgery (SDC) | payer OTHER, SELFPAY ==
[2021-08-06 14:47] VITALS: BMI 28.8
--- NOTE | 2021-08-09 10:44 | HO.ANESPROP2 ---
Documented by User: Janet Haque NP 08/09/21 10:45 HPI - Anesthesia Eval Consult details Narrative: 36yo M for Lumbar Spinal Cord Stimulation Trial s/p shoulder arthroscopy 05/2021 with GA-ETT 7.5 PMFSH Active Problems Active Problems: All Active Problems (Updated 08/06/21 @ 14:47 by Luz Ramirez, TYLER) Failed back syndrome of lumbar spine (Acute) MDD (major depressive disorder) (Acute) GERD without esophagitis (Acute) Insomnia (Acute) Screening for diabetes mellitus (DM) (Acute) Screening for hypothyroidism (Acute) Exposure to COVID-19 virus (Acute) Weakness of lower extremity (Acute) Elevated liver enzymes (Acute) Decreased hearing of both ears (Acute) PVD (peripheral vascular disease) (Acute) Pre-op evaluation (Acute) Pterygium (Acute) Otalgia, right ear (Acute) Chronic rhinitis (Acute) Hepatitis C antibody positive in blood (Acute) GERD (gastroesophageal reflux disease) (Acute) Lumbar disc disease with radiculopathy (Acute) Screening for diabetes mellitus (DM) (Acute) Shoulder subluxation, right (Acute) Rotator cuff tear (Acute) Elevated liver enzymes (Acute) Early satiety (Acute) URI, acute (Acute) Polyarthralgia (Acute) Annual physical exam (Acute) Obese (Acute) Impingement syndrome of right shoulder (Acute) Synovitis of right shoulder (Acute) Idiopathic polyneuropathy (Acute) Arthropathy of facet joint (Acute) Chronic pain syndrome (Acute) Spondylosis of lumbar spine (Acute) NAFLD (nonalcoholic fatty liver disease) (Acute) Acid reflux (Acute) Past Medical History Medical History Acid reflux Arthropathy of facet joint Chronic pain syndrome Cough, unspecified Idiopathic polyneuropathy NAFLD (nonalcoholic fatty liver disease) PEDRITO on CPAP RLS (restless legs syndrome) Spondylosis of lumbar spine Family History Family History Father Epilepsia Multiple sclerosis Bedridden Mother HTN (hypertension) Family history of problems with anesthesia: No Surgical History Surgical History History of cholecystectomy History of coronary rotational ablation History of esophagogastroduodenoscopy (EGD) History of lumbar spinal fusion History of shoulder surgery Hx of colonoscopy History of Problems with Anesthesia: No Social History Social History Household Members: None Housing: House Are you a primary behavioral health care manager to a significant other at home: No Alcohol intake: never Patient Tobacco Use Status: Former Tobacco user Quit Date: 2014 Tobacco use type: Cigarette e-Cigarette/Vaping Use: Never Used Second Hand Smoke Exposure: Yes Use of substances other than those prescribed or required for medical reasons: No Are you DNR?: No Advance Directives: No Advance Directives Information Provided: Yes Advance Directives on File: No service: No Current occupational status: unemployed Current occupation: rt hand Meds Allergies Allergy/AdvReac Type Severity Reaction Status Date / Time No Known Allergies Allergy Verified 07/05/21 09:37 [No Known Allergies*] Home Medications Medication Instructions Recorded Confirmed Last Taken Type escitalopram oxalate 10 mg tablet 10 mg PO DAILY 02/21/21 08/06/21 Unknown History hydroxyzine pamoate 50 mg capsule 50 mg PO DAILY PRN 03/09/21 08/06/21 Unknown History ibuprofen 600 mg tablet 600 mg PO TID PRN 05/17/21 08/06/21 05/18/21 History buspirone 5 mg tablet 5 mg PO BID 05/21/21 08/06/21 Unknown History Exam Exam Date and Time: August 09, 2021 1044 Height,Weight and Vital Signs: Height 5 ft 11 in Weight 93.894 kg Pertinent Lab Results Pertinent Lab Results: Laboratory Tests 01/25/21 03/01/21 14:28 08:38 WBC 7.2 Hgb 14.3 Hct 42.4 Plt Count 176 Sodium 139 Potassium 4.2 Chloride 108 Carbon Dioxide 26 BUN 14 Creatinine 0.81 Narrative Narrative: EKG 08/2020 Vent. Rate : 075 BPM ? ? Atrial Rate : 075 BPM ?? P-R Int : 160 ms? QRS Dur : 090 ms ? ? QT Int : 374 ms ? ? ? P-R-T Axes : 025 042 038 degrees ?? QTc Int : 417 ms ? Normal sinus rhythm Normal ECG When compared with ECG of 14-OCT-2019 19:23, No significant change was found Assessment and Plan Assessment Anesthesia Assessment: Chart Reviewed Final Anesthetic Review Family History of Problems with Anesthesia: No History of Problems with Anesthesia: No Documented by User: Myranda Mclaughlin MD 08/10/21 10:39 PMFSH Past Medical History Medical History Acid reflux Arthropathy of facet joint Chronic pain syndrome Cough, unspecified Idiopathic polyneuropathy NAFLD (nonalcoholic fatty liver disease) PEDRITO on CPAP RLS (restless legs syndrome) Spondylosis of lumbar spine Functional capacity: independent ambulation Family History Family History Father Epilepsia Multiple sclerosis Bedridden Mother HTN (hypertension) Surgical History Surgical History History of cholecystectomy History of coronary rotational ablation History of esophagogastroduodenoscopy (EGD) History of lumbar spinal fusion History of shoulder surgery Hx of colonoscopy Social History Social History Household Members: None Housing: House Are you a primary behavioral health care manager to a significant other at home: No Alcohol intake: never Patient Tobacco Use Status: Former Tobacco user Quit Date: 2014 Tobacco use type: Cigarette e-Cigarette/Vaping Use: Never Used Second Hand Smoke Exposure: Yes Use of substances other than those prescribed or required for medical reasons: No Are you DNR?: No Advance Directives: No Advance Directives Information Provided: Yes Advance Directives on File: No service: No Current occupational status: unemployed Current occupation: rt hand Meds Allergies Allergy/AdvReac Type Severity Reaction Status Date / Time No Known Allergies Allergy Verified 07/05/21 09:37 [No Known Allergies*] Home Medications Medication Instructions Recorded Confirmed Last Taken Type escitalopram oxalate 10 mg tablet 10 mg PO DAILY 02/21/21 08/06/21 Unknown History hydroxyzine pamoate 50 mg capsule 50 mg PO DAILY PRN 03/09/21 08/06/21 Unknown History ibuprofen 600 mg tablet 600 mg PO TID PRN 05/17/21 08/06/2105/18/21 History buspirone 5 mg tablet 5 mg PO BID 05/21/21 08/06/21 Unknown History Exam Airway Mallampati Class: II TM Dist: >3cm Neck ROM: Full Loose/Missing/Broken Teeth: No Heart: RRR Lungs: CTA Assessment and Plan Assessment Anesthesia Assessment: Anesthesia Plan Discussed Final Anesthetic Review NPO: Yes ASA Class: III Final Preanesthetic Review: Meds/Allgs Chart Reviewed, Consent Obtained/Reviewed and Anes Risks/Benef Reviewed Patient Risk: Intermediate Procedure Risk: Intermediate Anesthetic Plan Anesthetic Plan: MAC: Disposition: Standard PACU
--- NOTE | ~2021-08-10 | FL_ITS ---
EXAMINATION: XR FLUOROSCOPY WITH IMAGES CLINICAL INFORMATION: Lumbar spinal cord stimulator trial COMPARISON: None. TECHNIQUE: Fluoroscopy performed by Dr. Zane Mohan. Fluoroscopy time: 1.6 minutes DAP: 80.7 mGycm2 Images: 2 FINDINGS: AP and lateral of lower thoracic spine reveals 2 posterior epidural spinal stimulators overlying T8 through T12 vertebra. No gross bony or the body seen. FL/FL guidance in OR IMPRESSION: Fluoroscopy was provided to referring physician for posterior epidural lumbar spinal cord stimulator trial insertion.
[2021-08-10 09:24] VITALS: BP 137/70; RESP 16; TEMP 36.8; O2SAT 98
[2021-08-10] MEDS: Lactated Ringers 1,000 ML 100 ML IVCONT (09:43)
--- NOTE | 2021-08-10 10:31 | MHC.SHP ---
Pre-Procedural Eval Section A Date of Service: 08/10/21 The patient is an INPATIENT: No Changes since office visit: Yes Patient answered all questions The History & Physical has been completed within 30 days and I have reviewed it.: No Section B Chief Complaint: postlaminectomy syndrome Details of Present Illness: postlaminectomy syndrome peripheral neuropathy Relevant Family History (Specify if Yes): No Relevant Social History: None Present Medications: see Short Stay Collaborative assessment Medical History: No relevant PMH History of Previous Operations: Relevant previous surgery/procedure and date(s) Allergies: Allergies Allergy/AdvReac Type Severity Reaction Status Date / Time No Known Allergies Allergy Verified 07/05/21 09:37 [No Known Allergies*] Review of Systems Sugical H&P ROS: Negative: Constitution, Cardiovascular, Respiratory, Neurological, Psychiatric, Hem-Onc, Allergic/Immunologic, Gastrointestinal, Genitourinary, Musculoskeletal, Integumentary, Endocrine and Eyes/Ears/Nose/Throat Exam Surgical H&P Exam: Normal: HEENT, Normal: Heart, Normal: Lungs, Normal: Extremities, Normal: Abdomen, Normal: Skin and Normal: Neurological Plan Diagnosis/Plan: Unchanged I have reviewed the history and physical and performed a pertinent physical examination on my patient. No changes have occurred unless specified.
--- NOTE | 2021-08-10 11:54 | P.OP_ITS ---
Operative Note Operative Note Date of Service: 08/10/21 Narrative: August is very pleasant 36 years old gentleman? who came today into the operating room for trial of spinal cord stimulator for the treatment of post laminectomy syndrome and peripheral neuropathy. Preoperatively patient received cefasolin 2 g approximately 30 minutes before the procedure. After obtaining informed consent the patient was brought to the operating room, HE was positioned prone on operating table, [place] [employer] monitors were applied and patient was deeply sedated.? ?Time-out was performed delineating correct site, side, the nature of the procedure, patient's allergy, preoperative antibiotic if needed.? All operating room staff was participating in OR time-out procedure. Patient's entire back was prepped with DuraPrep twice and draped with full body fenestrated drape.? Sterilely draped C-arm was brought over operating field and sqare picture of T11-T12 L1 L2 vertebrae as were demonstrated on the screen.? Attention FIRST? was concentrated on the L1-L2 epidural interspace.? The location of the projection of the right pedicle center of the? L3 vertebra was found on the skin using C-arm.? This location was injected with mixture of lidocaine 2% and Marcaine 0.5% 5 cc.? After that 11 blade was used to make a tory on the skin.? 10 cm 14 gauge? introducer epidural needle was inserted through the tory and advanced to? T12-L1 epidural interspace.? The advancement of the needle was performed on anterior posterior and lateral views.? Guitar wire and loss of resistance technique were used to locate epidural space.? When guitar wire was spread in the epidural fashion, epidural lead was inserted through the skin and it was advanced to middle of T8 position? SLIGHTLY right of the MIDLINE.? After that location of the projection of the LEFT pedicle center of the L3 vertebra was found on the skin using C-arm.? This location was injected with mixture of lidocaine 2% and Marcaine 0.5% 5 cc.? After that 11 blade was used to make a tory on the skin.? 10 cm 14 gauge curved introducer epidural needle was inserted through the tory and advanced to L1-L2 epidural interspace.? The advancement of the needle was performed on anterior posterior and lateral views.? Guitar wire and loss of resistance technique were used to locate epidural space.? When guitar wire was spread in the epidural fashion, epidural lead was inserted through the needle and advanced to the middle of T9 epidural interspace the way the last looked wrote will be in projection of T12 vertebra. It was inserted slightly left to the existing electrode. Impedance was checked and was satisfactory .The needles were withdrawn, the stylette wires were removed from the epidural leads.? The anchoring devices were dislodged on the leads and advanced to the level of the skin.? The anchoring devices were sutured with two 0-0 silk sutures per each anchor to the skin of the patient. The central fixation screw of each anchor was rotated until three clicks were heard. The leads were connected to testing device.? Bacitracin ointment was applied to the entrance point of bilateral needles.? Sterile dressing was applied to the patient's back.? The testing device was also glued to the patient's back.?
[2021-08-10 11:55] VITALS: BP 114/71; PULSE 99; RESP 16; TEMP 36.6; O2SAT 98
--- NOTE | 2021-08-10 11:57 | PM.OP ---
Brief Operative Note Date of Service: 08/10/21 Pre-op diagnosis: postlaminectomy syndrome, peripheral neuropathy Procedure: trial of spinal cord stimulator Nevro Implants: none permanent Surgeon: Zane Mohan MD Anesthesia: MAC Was an Lathe Scalper Operator used for this Procedure?: No Estimated blood loss (mL): 0 Pathology: none sent Condition: stable Disposition: PACU
[2021-08-10 12:10] VITALS: BP 114/74; PULSE 97; RESP 18; O2SAT 97
[2021-08-10 12:25] VITALS: BP 116/77; PULSE 96; RESP 18; TEMP 36.9; O2SAT 100
== END 2021-08-10 13:03 ==
LOC: HO.SSS 08:41
PROVIDERS: PCP Physician Assistant; Visit Provider Anesthesiology
PROC: (CPT 63650; principal; 2021-08-10 10:40)
DX: M96.1 Postlaminectomy syndrome, not elsewhere classified (principal); M47.816 Spondylosis without myelopathy or radiculopathy, lumbar region; G89.4 Chronic pain syndrome; M47.819 Spondylosis without myelopathy or radiculopathy, site unspecified; M54.50 Low back pain, unspecified; G60.9 Hereditary and idiopathic neuropathy, unspecified; G25.81 Restless legs syndrome; Z98.1 Arthrodesis status; Z79.899 Other long term (current) drug therapy; Z87.891 Personal history of nicotine dependence
CPT/HCPCS: 63650 ×2; C1713; C1778; J0690; J2250; J3010

== ENCOUNTER → 2021-08-13 09:29 | Outpatient (BNVA) | payer OTHER, SELFPAY | PROVIDERS: PCP Physician Assistant; Visit Provider Anesthesiology | DX: Z48.1 Encounter for planned postprocedural wound closure (principal); Z96.82 Presence of neurostimulator | CPT/HCPCS: 99211 ==

== ENCOUNTER → 2021-08-16 10:37 | Outpatient (BNVA) | payer OTHER, SELFPAY | PROVIDERS: PCP Physician Assistant; Visit Provider Anesthesiology | DX: M47.816 Spondylosis without myelopathy or radiculopathy, lumbar region (principal); M47.819 Spondylosis without myelopathy or radiculopathy, site unspecified; G89.4 Chronic pain syndrome; G60.9 Hereditary and idiopathic neuropathy, unspecified | CPT/HCPCS: 99212 ==

== ENCOUNTER 2021-08-22 07:54 | Outpatient (REF) | payer OTHER, SELFPAY ==
[2021-08-22 08:22] LABS: Hemoglobin 15.9 g/dl (14.0-18.0); Mean Corpuscular HGB Conc 33.8 g/dl (31.0-36.0); Mean Corpuscular Hemoglobin 30.3 pg (27.0-33.0); Mean Corpuscular Volume 89.5 fL (80.0-98.0); Mean Platelet Volume 10.1 fL (9.4-12.4); Platelet Count 206 X10*3/uL (160-400); Red Blood Count 5.25 X10*6/uL (4.60-5.80); Red Cell Distribution Width 12.1 % (11.0-16.0); White Blood Count 7.4 X10*3/uL (4.8-10.8)
[2021-08-22 08:58] LABS: Estimated Average Glucose 105 mg/dL; Hemoglobin A1c % 5.3 %
[2021-08-22 09:10] LABS: TSH reflex Free T4 < 0.01 uIU/mL (0.32-4.0)
[2021-08-22 09:13] LABS: Alanine Aminotransferase 138 U/L (0-40); Albumin Level 4.4 g/dL (3.5-5.0); Alkaline Phosphatase 104 U/L (39-117); Anion Gap 10 (12-20); Aspartate Amino Transferase 54 U/L (5-37); Bilirubin Total 0.5 mg/dL (0.0-1.0); Blood Urea Nitrogen 11 mg/dL (9-16); Calcium 10.3 mg/dL (8.4-10.2); Carbon Dioxide 29 mmol/L (22-29); Chloride 106 mmol/L (96-108); Estimated Glomerular Filt Rate > 60; Glucose Fasting 103 mg/dL (60-99); Potassium 4.9 mmol/L (3.3-5.1); Sodium 140 mmol/L (135-145); Total Protein 7.4 g/dL (6.5-8.0)
[2021-08-25 19:36] LABS: HCV RNA PCR Qn <1.18 log IU/mL; HCV RNA PCR Qn <15 IU/mL
== END 2021-08-22 07:55 | disposition home or self-care (01) ==
LOC: HO.LAB 07:54
PROVIDERS: Physician Assistant; PCP Physician Assistant; Visit Provider Physician Assistant
DX: Z13.29 Encounter for screening for other suspected endocrine disorder (principal); K21.9 Gastro-esophageal reflux disease without esophagitis
CPT/HCPCS: 36415; 80053; 83036; 84439; 84443; 85027; 87522; 87902

== ENCOUNTER → 2021-09-05 10:12 | Outpatient (BNVA) | payer OTHER, SELFPAY | PROVIDERS: PCP Physician Assistant; Referring Provider Physician Assistant; Visit Provider Physician Assistant | DX: K21.9 Gastro-esophageal reflux disease without esophagitis (principal); R74.8 Abnormal levels of other serum enzymes | CPT/HCPCS: 99212 ==

== ENCOUNTER 2021-10-04 09:25 | Day surgery (SDC) | payer OTHER, SELFPAY ==
[2021-09-27 19:26] VITALS: BMI 29.2
--- NOTE | 2021-10-03 09:47 | P.CONAN_ITS ---
Documented by User: Janet Haque NP 10/03/21 09:53 HPI - Anesthesia Eval Consult details Narrative: 36yo M Lumbar Spinal Stimulation Implant s/p trial 08/2021 with TIVA PMFSH Active Problems Active Problems: All Active Problems (Updated 09/05/21 @ 13:06 by Lachelle Perez PA-C) Low TSH level (Acute) Failed back syndrome of lumbar spine (Acute) MDD (major depressive disorder) (Acute) GERD without esophagitis (Acute) Insomnia (Acute) Screening for diabetes mellitus (DM) (Acute) Screening for hypothyroidism (Acute) Exposure to COVID-19 virus (Acute) Weakness of lower extremity (Acute) Elevated liver enzymes (Acute) Decreased hearing of both ears (Acute) PVD (peripheral vascular disease) (Acute) Pre-op evaluation (Acute) Pterygium (Acute) Otalgia, right ear (Acute) Chronic rhinitis (Acute) Hepatitis C antibody positive in blood (Acute) GERD (gastroesophageal reflux disease) (Acute) Lumbar disc disease with radiculopathy (Acute) Screening for diabetes mellitus (DM) (Acute) Shoulder subluxation, right (Acute) Rotator cuff tear (Acute) Elevated liver enzymes (Acute) Early satiety (Acute) URI, acute (Acute) Polyarthralgia (Acute) Annual physical exam (Acute) Obese (Acute) Impingement syndrome of right shoulder (Acute) Synovitis of right shoulder (Acute) Idiopathic polyneuropathy (Acute) Arthropathy of facet joint (Acute) Chronic pain syndrome (Acute) Spondylosis of lumbar spine (Acute) NAFLD (nonalcoholic fatty liver disease) (Acute) Acid reflux (Acute) Past Medical History Medical History Acid reflux Arthropathy of facet joint Chronic pain syndrome Cough, unspecified Idiopathic polyneuropathy NAFLD (nonalcoholic fatty liver disease) PEDRITO on CPAP RLS (restless legs syndrome) Spondylosis of lumbar spine Family History Family History Father Epilepsia Multiple sclerosis Bedridden Mother HTN (hypertension) Family history of problems with anesthesia: No Surgical History Surgical History History of cholecystectomy History of coronary rotational ablation History of esophagogastroduodenoscopy (EGD) History of lumbar spinal fusion History of shoulder surgery Hx of colonoscopy History of Problems with Anesthesia: No Social History Social History Household Members: None Housing: House Are you a primary manager intensive care unit to a significant other at home: No Alcohol intake: never Patient Tobacco Use Status: Former Tobacco user Quit Date: 2014 Tobacco use type: Cigarette e-Cigarette/Vaping Use: Never Used Second Hand Smoke Exposure: Yes Use of substances other than those prescribed or required for medical reasons: No Are you DNR?: No Advance Directives: No Advance Directives Information Provided: No Advance Directives on File: No Recently lost weight without trying: No Nutrition Risks: No Nutritional Risk service: No Current occupational status: unemployed Current occupation: rt hand [employer] Allergies Allergy/AdvReac Type Severity Reaction Status Date / Time No Known Allergies Allergy Verified 09/05/21 10:14 [No Known Allergies*] Home Medications Medication Instructions Recorded Confirmed Last Taken Type escitalopram oxalate 10 mg tablet 10 mg PO DAILY 02/21/21 09/27/21 Unknown History hydroxyzine pamoate 50 mg capsule 50 mg PO DAILY PRN 03/09/21 09/27/21 Unknown History ibuprofen 600 mg tablet 600 mg PO TID PRN 05/17/21 09/27/21 05/18/21 History buspirone 5 mg tablet 5 mg PO BID 05/21/21 09/27/21 Unknown History Exam Exam Date and Time: October 03, 2021 0947 Height,Weight and Vital Signs: Height 5 ft 11 in Weight 95.254 kg Pertinent Lab Results Pertinent Lab Results: Laboratory Tests 08/22/21 08/22/21 08:05 08:05 WBC 7.4 Hgb 15.9 Hct 47.0 Plt Count 206 Sodium 140 Potassium 4.9 Chloride 106 Carbon Dioxide 29 BUN 11 Creatinine 0.79 Narrative Narrative: EKG 08/2020 Vent. Rate : 075 BPM ? ? Atrial Rate : 075 BPM ?? P-R Int : 160 ms? QRS Dur : 090 ms ? ? QT Int : 374 ms ? ? ? P-R-T Axes : 025 042 038 degrees ?? QTc Int : 417 ms ? Normal sinus rhythm Normal ECG When compared with ECG of 14-OCT-2019 19:23, No significant change was found Assessment and Plan Assessment Anesthesia Assessment: Chart Reviewed Final Anesthetic Review Family History of Problems with Anesthesia: No History of Problems with Anesthesia: No Documented by User: Myranda Mclaughlin MD 10/04/21 10:51 PMFSH Past Medical History Medical History Acid reflux Arthropathy of facet joint Chronic pain syndrome Cough, unspecified Idiopathic polyneuropathy NAFLD (nonalcoholic fatty liver disease) PEDRIOT on CPAP RLS (restless legs syndrome) Spondylosis of lumbar spine Family History Family History Father Epilepsia Multiple sclerosis Bedridden Mother HTN (hypertension) Surgical History Surgical History History of cholecystectomy History of coronary rotational ablation History of esophagogastroduodenoscopy (EGD) History of lumbar spinal fusion History of shoulder surgery Hx of colonoscopy Social History Social History Household Members: None Housing: House Are you a primary manager intensive care unit to a significant other at home: No Alcohol intake: never Patient Tobacco Use Status: Former Tobacco user Quit Date: 2014 Tobacco use type: Cigarette e-Cigarette/Vaping Use: Never Used Second Hand Smoke Exposure: Yes Use of substances other than those prescribed or required for medical reasons: No Are you DNR?: No Advance Directives: No Advance Directives Information Provided: No Advance Directives on File: No Recently lost weight without trying: No Nutrition Risks: No Nutritional Risk service: No Current occupational status: unemployed Current occupation: rt hand Meds Allergies Allergy/AdvReac Type Severity Reaction Status Date / Time No Known Allergies Allergy Verified 09/05/21 10:14 [No Known Allergies*] Home Medications Medication Instructions Recorded Confirmed Last Taken Type escitalopram oxalate 10 mg tablet 10 mg PO DAILY 02/21/21 09/27/21 Unknown History hydroxyzine pamoate 50 mg capsule 50 mg PO DAILY PRN 03/09/21 09/27/21 Unknown History ibuprofen 600 mg tablet 600 mg PO TID PRN 05/17/21 09/27/21 05/18/21 History buspirone 5 mg tablet 5 mg PO BID 05/21/21 09/27/21 Unknown History Exam Airway Mallampati Class: II TM Dist: >3cm Neck ROM: Full Loose/Missing/Broken Teeth: No Heart: RRR Lungs: CTA Assessment and Plan Final Anesthetic Review NPO: Yes ASA Class: III Final Preanesthetic Review: Meds/Allgs Chart Reviewed, Consent Obtained/Reviewed and Anes Risks/Benef Reviewed Patient Risk: Intermediate Procedure Risk: Low Anesthetic Plan Anesthetic Plan: GA Disposition: Standard PACU
[2021-10-04] VITALS (21 sets, daily range): BP systolic 113–139; BP diastolic 65–81; PULSE 85–130; RESP 16–20; TEMP 36.2–37.1; O2SAT 95–100
--- NOTE | 2021-10-04 | ECG_ITS ---
Test Reason : cp Blood Pressure : / mmHG Vent. Rate : 111 BPM Atrial Rate : 111 BPM P-R Int : 202 ms QRS Dur : 096 ms QT Int : 318 ms P-R-T Axes : 045 035 055 degrees QTc Int : 432 ms Sinus tachycardia Nonspecific T wave abnormality Borderline ECG When compared with ECG of 31-AUG-2020 10:13, Nonspecific T wave abnormality now evident in Lateral leads Referred By: Shayne Ramirez Electronically Signed By:NELLIE PALUMBO
--- NOTE | ~2021-10-04 | FL_ITS ---
EXAMINATION: XR FL WITH IMAGES CLINICAL INFORMATION: Lumbar spinal cord stimulator implant. COMPARISON: 08/10/2021 TECHNIQUE: Fluoroscopy performed by Dr. Zane Mohan. Fluoroscopy Time: 1.6 minutes. DAP: 80.7 mGycm2. Images: 3. FINDINGS: AP and lateral C-arm views of the thoracic spine. On the provided imaging, I cannot definitely tell which is T12 and which is L1. Spinal stimulator wires are seen. The markers of the wires appear to extend from superior endplate of T9 to superior endplate of T12. FL/FL guidance in OR IMPRESSION: Fluoroscopy provided for placement of spinal cord stimulator wires.
--- NOTE | 2021-10-04 08:39 | MHC.SHP ---
Pre-Procedural Eval Section A Date of Service: 10/04/21 The patient is an INPATIENT: No Changes since office visit: Yes Patient answered all questions The History & Physical has been completed within 30 days and I have reviewed it.: No Section B Chief Complaint: Neuropathy Details of Present Illness: Neuropathy Relevant Family History (Specify if Yes): No Relevant Social History: None Present Medications: see Short Stay Collaborative assessment Medical History: No relevant PMH History of Previous Operations: No relevant previous surgery Allergies: Allergies Allergy/AdvReac Type Severity Reaction Status Date / Time No Known Allergies Allergy Verified 09/05/21 10:14 [No Known Allergies*] Review of Systems Sugical H&P ROS: Negative: Constitution, Cardiovascular, Respiratory, Neurological, Psychiatric, Hem-Onc, Allergic/Immunologic, Gastrointestinal, Genitourinary, Musculoskeletal, Integumentary, Endocrine and Eyes/Ears/Nose/Throat Exam Surgical H&P Exam: Normal: HEENT, Normal: Heart, Normal: Lungs, Normal: Extremities, Normal: Abdomen, Normal: Skin and Normal: Neurological Plan Diagnosis/Plan: Unchanged I have reviewed the history and physical and performed a pertinent physical examination on my patient. No changes have occurred unless specified.
[2021-10-04] MEDS: Lactated Ringers 1,000 ML 100 ML IVCONT (09:55)
--- NOTE | 2021-10-04 14:07 | P.BOP_ITS ---
Brief Operative Note Date of Service: 10/04/21 Pre-op diagnosis: neuropathy Post-op diagnosis: same Procedure: Nevro SCS implantation Implants: Omnia SCS battery and 2 epidural leads. Surgeon: Zane Mohan MD Anesthesia: GETA Was an Sales Representative [employer] used for this Procedure?: No Estimated blood loss (mL): 13 Pathology: none sent Condition: stable Disposition: PACU
--- NOTE | 2021-10-04 14:10 | W.PM.OPN ---
Operative Note Operative Note Date of Service: 10/04/21 Narrative: August lemus 36 years old gentleman who came today the operating room for the implant of Nevro spinal cord stimulator for the treatment of mostly axial lower back pain and peripheral neuropathy. After obtaining informed consent patient was brought to the operating room, he was positioned supine on the stretcher, [place] [employer] monitors were applied and patient was induced with general anesthesia with endotracheal intubation.? After that patient was transferred on the operating table prone, all pressure points were protected. ? Time-out was performed delineating correct site, side, the nature of the procedure, patient's allergy, preoperative antibiotic if needed.? All operating room staff was participating in OR time-out procedure. 3gramms of cefasolin IV was administered approximately 30 minutes before the start of the procedure. Patient's entire back was prepped with Chloraprep twice and draped with full body drape including [place]ob[place] film.? Sterilely draped C-arm was brought over operating field and square picture of T12, L1, L2, L3?vertebrae? were demonstrated on the screen.? THE PROJECTION OF? L2 and L3?SPINOUS PROCESSES TO THE SKIN WERE INFILTRATED WITH LIDOCAINE 2% MIXED WITH BUPIVACAINE 0.5%.? 5 CM LONG VERTICAL INCISION using a 10 blade scalpel WAS PERFORMED IN STRICT MIDLINE VERTICAL FASHION.? THOROUGH HEMOSTASIS WAS PERFORMED using electrocautery. ?Thorough tissue dissections was performed until prevertebral fascia was freed from overlying tissues.? Attention FIRST? was concentrated on the RIGHT T12-L1 epidural interspace.? The location of the projection of the right pedicle center of the?L3?vertebra was found on the prevertebral fascia using C-arm. 10 cm 14 gauge straight introducer epidural needle was inserted through the fascia and advanced toward?L1- L2 epidural interspace.? The advancement of the needle was performed on anterior posterior and lateral views.? Guitar wire and loss of resistance technique were used to locate epidural space.?When loss of resistance was felt in the needle, guitar wire was obtained inserted into the needle and spread in epidural fashion. After that epidural lead was inserted through the needle and it was advanced to the position in the POSTERIOR EPIDURAL SPACE ? strictly at the MIDLINE at the posterior T8 vertebral body body epidural space. After that location of the projection of the LEFT pedicle center of the L3 vertebra was found -using C-arm.? This location was injected with mixture of lidocaine 2% and Marcaine 0.5% 5 cc.? Again here 10 cm 14 gauge straight epidural needle was inserted through the prevertebral fascia and advanced to L1-L2 intervertebral interspace now on the left side.? Loss of resistance to air technique was used to locate epidural space and guitar wire was used to confirm position of the epidural space. When guitar wire was spread in the epidural fashion, epidural lead was inserted through the needle and advanced to the? T9 POSTERIOR EPIDURAL SPACE?LEFT to the existing LEAD.? THE LOCATION OF BOTH LEADS WAS VERIFIED ON ANTERIOR POSTERIOR AND LATERAL VIEWS. After satisfactory position of the leads were established the needles were withdrawn, the stylette wires were removed from the epidural leads.? The anchoring devices were dislodged on the leads and advanced to the level of the prevertebral fascia.? The anchoring devices were advanced along the epidural leads and dislodged on epidural leads at the level of prevertebral fascia.? They were sutured to prevertebral fascia with 2 separate Tycron 1-0 sutures per each anchoring device.? The fixating screws were fixed until 3 clicks were heard on each anchoring device. After that the wound was irrigated with copious amount of Vancomycin containing normal saline and packed with Vancomycin soaked 4 x 4. ?After that attention was concentrated on the left upper buttock??of the patient?where he wanted the? battery to be implanted.?Using 10 scalpel 6 cm long horizontal incision was performed 3 cm below the projection to the skin of the left iliac creest. ? The wound was deepened and widened and thorough hemostasis was performed. The pocket was created to accommodate the battery. Irrigation with vancomycin containing saline was performed.After that the? tunneling device was used to connect midline incision and the left upper buttock incision. Thorough hemostasis was performed. ?? After that tunneling device was used to connect both wounds and dislodge epidural leads from midline wound to the lateral wound in the? upper ? Left buttock..? The epidural lead's contacting ends were connected to the battery. The impedance was satisfactory. The leads were locked. After that both wounds were thoroughly irrigated with normal saline containing vancomycin.?? Tycron 1 0 Sutures were applied to the most superior lateral and most superior medial corners of the? wound.? Those sutures were tied after the battery was inserted into the pocket with the epidural leads collected behind the body of the battery.. After that 0 Pol[place] sutures were used to close both wounds.?0-2 [place] surures were used to approximate the level of the skin on the both wounds.? Hector were applied to skin level.? Bacitracin ointment was smeared on the staple line.? Sterile dressing was applied.? Abdominal binder was applied.? The patient was transferred to the stretcher, awaken, and in stable condition transferred to PACU.?
[2021-10-04] MEDS: Acetaminophen 325 MG TABLET 650 MG PO (15:18)
[2021-10-04] MEDS: oxyCODONE HCl Immed Release 5 MG TABLET 10 MG PO (15:19)
[2021-10-04] MEDS: fentaNYL citrate/PF 100 MCG/2 ML VIAL 50 MCG IVPUSH ×2 (15:27→15:32)
[2021-10-04] MEDS: ondansetron HCL 4 MG/2 ML VIAL IVPUSH (16:41)
[2021-10-04 18:23] LABS: Troponin-I High Sensitivity < 3.5 ng/L (<3.5-35.0)
[2021-10-04] MEDS: Metoprolol Tartrate 5 MG/5 ML VIAL IVPUSH (18:39)
== END 2021-10-04 19:25 | disposition home or self-care (01) ==
PROVIDERS: Anesthesiology; PCP Physician Assistant; Visit Provider Anesthesiology
PROC: (CPT 63685; principal; 2021-10-04 11:30)
DX: G60.9 Hereditary and idiopathic neuropathy, unspecified (principal); G89.4 Chronic pain syndrome; M54.59 Other low back pain; M47.816 Spondylosis without myelopathy or radiculopathy, lumbar region; G25.81 Restless legs syndrome; G47.33 Obstructive sleep apnea (adult) (pediatric); Z99.89 Dependence on other enabling machines and devices; Z98.890 Other specified postprocedural states; Z87.891 Personal history of nicotine dependence
CPT/HCPCS: 63685; 63650 ×2; 36415; 84484; 93005; C1713; C1778; J0690; J1100; J1170; J2250; J2405; J2550; J3010; J3370

== ENCOUNTER 2021-10-05 16:44 | Emergency (ER) | payer OTHER, SELFPAY ==
[2021-10-05 17:19] VITALS: BP 122/77; PULSE 100; RESP 19; TEMP 36.6; O2SAT 99; BMI 30.1
--- NOTE | 2021-10-05 17:23 | ECG_ITS ---
Test Reason : BACK PAIN Blood Pressure : / mmHG Vent. Rate : 101 BPM Atrial Rate : 101 BPM P-R Int : 164 ms QRS Dur : 092 ms QT Int : 336 ms P-R-T Axes : 047 038 035 degrees QTc Int : 435 ms Sinus tachycardia Nonspecific T wave abnormality Borderline ECG When compared with ECG of 04-OCT-2021 18:08, No significant change was found Referred By: Generic ED Physician Electronically Signed By:NELLIE PALUMBO
[2021-10-05 17:58] LABS: MANUAL DIFF FLAG NO
[2021-10-05 18:01] LABS: Basophils Percent Auto 0.2 % (0-2); Eosinophils Percent Auto 0.2 % (0-4); Hematocrit 41.2 % (42.0-52.0); Hemoglobin 13.7 g/dl (14.0-18.0); Imm Gran Abs Auto 0.03 X10*3/uL (0.00-0.03); Imm Gran Pct Auto 0.2 % (0.0-0.4); Lymphocytes Absolute Auto 3.8 X10*3/uL (1.2-4.9); Lymphocytes Percent Auto 31.9 % (20-40); Mean Corpuscular HGB Conc 33.3 g/dl (31.0-36.0); Mean Corpuscular Hemoglobin 29.9 pg (27.0-33.0); Monocytes Absolute Auto 1.1 X10*3/uL (0.1-1.2); Monocytes Percent Auto 8.7 % (2-11); Neutrophils Absolute Auto 7.1 x10*3/uL (2.0-8.3); Neutrophils Percent Auto 58.8 % (45-73); Platelet Count 182 X10*3/uL (160-400); Red Blood Count 4.58 X10*6/uL (4.60-5.80); Red Cell Distribution Width 12.5 % (11.0-16.0)
[2021-10-05 18:13] LABS: Anion Gap 12 (12-20); Blood Urea Nitrogen 13 mg/dL (9-16); Calcium 9.3 mg/dL (8.4-10.2); Carbon Dioxide 29 mmol/L (22-29); Chloride 103 mmol/L (96-108); Creatinine Clr Calc Pharmacy 151.4; Estimated Glomerular Filt Rate > 60; Glucose Random 135 mg/dL (60-115); Sodium 140 mmol/L (135-145)
[2021-10-05 18:20] LABS: Troponin-I High Sensitivity < 3.5 ng/L (<3.5-35.0)
[2021-10-05 23:37] VITALS: BP 125/74; PULSE 92; PULSE 94; RESP 23; O2SAT 99
[2021-10-06 00:01] VITALS: PULSE 96
--- NOTE | 2021-10-06 00:04 | ED.ARRPALP ---
HPI - Arrhythmia/Palpitations General Chief Complaint: Arrhythmia/Palpitations Stated Complaint: lower back pain Time Seen by Provider: 10/05/21 23:38 Source: patient Mode of arrival: ambulatory Limitations: no limitations History of Present Illness HPI narrative: 36-year-old male who presents emergency department for evaluation of back pain and palpitations. The patient has a history of chronic back pain and had a spinal stimulator placed yesterday at this facility. He states that after the procedure he had had palpitations. He states that he felt his heart was racing any had a slight pressure in the center of his chest. He believes his heart rate was as high as 140. He states that he was given a medication postoperatively which improved his palpitations. In reviewing his EKG from 10/04/2021 at 18:08 hours he had a sinus tachycardia with a rate of 111 the slight prolonged CA interval 202 milliseconds, there is no ST segment elevation or depression. He states that since going home he has had intermittent episodes of palpitations. He states he feels like his heart races. He states that he has a very mild pressure in the center of his chest. He states that the symptoms can last 15-20 minutes. He has had episodes multiple times throughout the day today. He states that occasionally he felt sweaty with the palpitations but denied lightheadedness, dizziness, neck, arm, jaw pain associated with the palpitations. Patient states that he has chronic pain in his back and that the pain is always greater than 10/10. He states that since the surgical procedure his pain is gotten significantly worse.. He denied fever, chills, fatigue, weakness, myalgias arthralgias. Patient states that he has a history of SVT and had an ablation in 2011. complaint: rapid heart beat Onset (ago): day(s) (1) Duration: intermittent Severity: moderate Context: occurred during rest Arrhythmia history: SVT (Status post ablation 2011) Associated symptoms: chest pain and diaphoresis Related Data Home Medications Medication Instructions Recorded Confirmed escitalopram oxalate 10 mg tablet 10 mg PO DAILY 02/21/21 10/05/21 hydroxyzine pamoate 50 mg capsule 50 mg PO DAILY PRN 03/09/21 10/05/21 ibuprofen 600 mg tablet 600 mg PO TID PRN 05/17/21 10/05/21 buspirone 5 mg tablet 5 mg PO BID 05/21/21 10/05/21 oxycodone-acetaminophen 5 mg-325 1 tab PO Q4H PRN 10/05/21 10/05/21 mg tablet (Percocet) Previous Rx's Medication Instructions Recorded cyclobenzaprine 10 mg tablet 10 mg PO TID PRN 30 Days #90 tab 05/21/21 gabapentin 600 mg tablet 600 mg PO TID 90 Days #270 tab 05/21/21 loratadine 10 mg tablet 10 mg PO DAILY 90 Days #90 tab 05/21/21 omeprazole 40 mg capsule,delayed 40 mg PO DAILY 90 Days #90 cap 05/21/21 release diphenhydramine HCl 25 mg capsule 25 mg PO TID 5 Days #15 cap 08/15/21 (Benadryl) miscellaneous medical supply 1 ea MISCELLANEOUS DAILY 99 Days 08/15/21 #1 ea tramadol 50 mg tablet 50 mg PO BID PRN 7 Days #14 tab 08/15/21 walker #1 ea 08/15/21 trazodone 100 mg tablet 100 mg PO BEDTIME 90 Days #90 tab 08/22/21 cephalexin 500 mg tablet 1,000 mg PO Q8H 15 Days #90 tab 10/04/21 Allergies Allergy/AdvReac Type Severity Reaction Status Date / Time No Known Allergies Allergy Verified 09/05/21 10:14 [No Known Allergies*] Review of Systems Review of Systems: Yes all other systems are reviewed and are negative [facility] Past Medical History [facility] Narrative: Social history: She denies tobacco, alcohol and drug use. Medical History Acid reflux Arthropathy of facet joint Chronic pain syndrome Cough, unspecified Idiopathic polyneuropathy NAFLD (nonalcoholic fatty liver disease) PEDRITO on CPAP RLS (restless legs syndrome) Spondylosis of lumbar spine Surgical History History of cholecystectomy History of coronary rotational ablation History of esophagogastroduodenoscopy (EGD) History of lumbar spinal fusion History of shoulder surgery Hx of colonoscopy Family History Family History Father Epilepsia Multiple sclerosis Bedridden Mother HTN (hypertension) Social History Social History Household Members: None Housing: House Are you a primary certified social workers in health care to a significant other at home: No Alcohol intake: never Patient Tobacco Use Status: Former Tobacco user Quit Date: 2014 Tobacco use type: Cigarette e-Cigarette/Vaping Use: Never Used Second Hand Smoke Exposure: Yes Advance Directives: No service: No Current occupational status: unemployed Current occupation: rt hand Physical Exam Vital Signs: Vital Signs: Last Vital Signs Temp 98 F 10/05/21 17:19 Pulse 96 10/06/21 00:01 Resp 15 10/06/21 01:02 BP 125/74 10/05/21 23:37 Pulse Ox 99 10/05/21 23:37 BMI result Body Mass Index 30.1 Const: General: cooperative and no acute distress Orientation/consciousness: oriented to person and oriented to place Limitations: no limitations HEENT: Head: Yes normal to inspection, Yes normocephalic and Yes atraumatic Ears: external ears normal General nose exam: Normal external nose present Face and sinus: Yes normal facial exam Mouth: Normal oral and palatal mucosa present Throat: Yes posterior oropharynx normal Eyes: General: appearance normal, both eyes and all related structures Pupils: Equal, round and reactive pupils present Neck: Neck: Yes normal visual inspection, Yes no lymphadenopathy, Yes trachea midline and Yes supple Chest: Chest palpation & inspection: normal inspection of the chest and normal palpation of entire chest wall Resp: Effort & Inspection: normal respiratory effort and able to speak in complete sentences Auscultation: clear to auscultation bilaterally Cardio: Rate: regular rate Rhythm: regular rhythm Heart sounds: S1 normal heart sound present, S2 normal heart sound present and no murmurs GI: Inspection: Yes normal to inspection Palpation (GI): Soft to palpation, nontender and no guarding Auscultation: normal bowel sounds Back/Spine/Pelvis: Other: The patient does have tenderness with palpation over his lower lumbar spine and paraspinal muscles, patient's lower back and stimulator forwrapped with bandages in these were not taken down. Neuro: General: oriented to person and oriented to place Cranial nerves: Yes CN's II-XII intact bilaterally and Yes Equal, round and reactive pupils present Cognition (Neuro): normal cognition Motor exam (neuro): 5/5 motor strength present throughout Extrem: General: Yes normal to inspection Psych: Appearance: grossly normal Speech and movement: Normal speech and movement present Affect: normal affect Attitude: cooperative Thought process: Normal thought process present Thought content: Normal thought content present Course Course Course Narrative: 36-year-old male with a history of chronic back pain you had a neurostimulator implanted yesterday here at this facility. The patient did have sinus tachycardia after the procedure is unclear if he received any medications. He states that he has had intermittent palpitations with chest pain since yesterday. He is also having increased pain in his lower back. He had no other concerning symptoms. Vital signs were normal. [place] [address] , elevated glucose of 135. Troponin was below detectable limits. Twelve EKG revealed a sinus tachycardia with a rate of 101 with no significant abnormalities. At this time, I believe that the patient's palpitations may be secondary to his pain and I did discuss this with him. Patient was treated with morphine 4 mg IV and normal saline x1 L. 0116: Patient was given a total of 12 mg of morphine IV with only minimal improvement his pain. The patient does have oxycodone at home. The patient was discharged with printed and verbal instructions. MDM - Arrhythmia/Palpitations Lab Data Result diagrams: 10/05/21 17:45 10/05/21 17:45 Labs: Lab Results 10/05/21 10/05/21 10/05/21 Range/Units 17:45 17:45 17:45 WBC 12.0 H (4.8-10.8) X10*3/uL RBC 4.58 L (4.60-5.80) X10*6/uL Hgb 13.7 L (14.0-18.0) g/dl Hct 41.2 L (42.0-52.0) % MCV 90.0 (80.0-98.0) fL MCH 29.9 (27.0-33.0) pg MCHC 33.3 (31.0-36.0) g/dl RDW 12.5 (11.0-16.0) % Plt Count 182 (160-400) X10*3/uL MPV 10.0 (9.4-12.4) fL Immature Gran % (Auto) 0.2 (0.0-0.4) % Neut % (Auto) 58.8 (45-73) % Lymph % (Auto) 31.9 (20-40) % Meriwether % (Auto) 8.7 (2-11) % Eos % (Auto) 0.2 (0-4) % Baso % (Auto) 0.2 (0-2) % Lymph # (Auto) 3.8 (1.2-4.9) X10*3/uL Meriwether # (Auto) 1.1 (0.1-1.2) X10*3/uL Eos # (Auto) 0.0 (0.0-0.4) X10*3/uL Baso # (Auto) 0.0 (0.0-0.2) X10*3/uL Abs Immat Gran (auto) 0.03 (0.00-0.03) X10*3/uL Absolute Neuts (auto) 7.1 (2.0-8.3) x10*3/uL Absolute Nucleated RBC 0.000 (0.0-0.012) X10*3/uL Nucleated RBC % (auto) 0.0 (0.0-0.2) /100WBC Sodium 140 (135-145) mmol/L Potassium 4.0 (3.3-5.1) mmol/L Chloride 103 (96-108) mmol/L Carbon Dioxide 29 (22-29) mmol/L Anion Gap 12 (12-20) BUN 13 (9-16) mg/dL Creatinine 0.82 (0.5-1.4) mg/dL Estim Creat Clear Calc 151.4 Estimated GFR > 60 Random Glucose 135 H D (60-115) mg/dL Calcium 9.3 D (8.4-10.2) mg/dL Troponin I High Sens < 3.5 (<3.5-35.0) ng/L ECG Data Interpretation: 1746: Sinus tachycardia with a rate of 101, normal CA, QRS and QTC intervals, no ST segment elevation, no ST segment depression, no PACs, no PVCs, compared to EKG dated 10/04/2021 there are no significant changes. Discharge Plan Discharge Clinical Impression: Palpitation Back pain Qualifiers: Chronicity: acute Patient Disposition: Home, Self-Care Instructions: Heart Palpitations (DC), Acute Low Back Pain (ED) Additional Instructions: Your blood work today was unremarkable. Your 12 EKG was normal. Continue taking medications as prescribed by your providers. Follow-up with your doctor in 2 days. Please return to the emergency department if your symptoms get worse or if you develop any symptoms that are concerning to you. Prescriptions: No Action trazodone 100 mg tablet 100 mg PO BEDTIME 90 Days Qty: 90 1RF cephalexin 500 mg tablet 1,000 mg PO Q8H 15 Days Qty: 90 1RF Rx Instructions: take probiotics OTC in between the doses of the antibiotics ibuprofen 600 mg tablet 600 mg PO TID PRN (Reason: Pain) 0RF oxycodone-acetaminophen [Percocet] 5-325 mg Tablet 1 tab PO Q4H PRN (Reason: Pain) 0RF buspirone 5 mg tablet 5 mg PO BID 0RF cyclobenzaprine 10 mg tablet 10 mg PO TID PRN (Reason: muscle spasm) 30 Days Qty: 90 0RF gabapentin 600 mg tablet 600 mg PO TID 90 Days Qty: 270 1RF omeprazole 40 mg capsule,delayed release(DR/EC) 40 mg PO DAILY 90 Days Qty: 90 1RF loratadine 10 mg tablet 10 mg PO DAILY 90 Days Qty: 90 1RF hydroxyzine pamoate 50 mg capsule 50 mg PO DAILY PRN (Reason: Anxiety) 0RF miscellaneous medical supply Misc 1 ea miscellaneous DAILY 99 Days Qty: 1 0RF (DME) walker [facility] [place] Rx Instructions .Route Qty: 1 0RF Rx Instructions: As directed tramadol 50 mg tablet 50 mg PO BID PRN (Reason: pain) 7 Days Qty: 14 1RF diphenhydramine HCl [Benadryl] 25 mg capsule 25 mg PO TID 5 Days Qty: 15 0RF Rx Instructions: Advised to hold hydroxyzine while on Benadryl escitalopram oxalate 10 mg tablet 10 mg PO DAILY 0RF
[2021-10-06 00:13] VITALS: RESP 20
[2021-10-06] MEDS: Morphine Sulfate 4 MG/ML CARTRIDGE IVPUSH ×3 (00:13→01:23)
[2021-10-06] MEDS: 0.9 % Sodium Chloride 1,000 ML 999 ML IV (00:14)
[2021-10-06 01:02] VITALS: RESP 15
[2021-10-06 01:23] VITALS: RESP 15
== END 2021-10-06 01:45 | disposition home or self-care (01) ==
PROVIDERS: Emergency Provider Emergency Medicine Emergency Medical Services; PCP Physician Assistant
DX: R00.2 Palpitations (principal); R00.0 Tachycardia, unspecified; G89.29 Other chronic pain; M54.50 Low back pain, unspecified; Z96.82 Presence of neurostimulator
CPT/HCPCS: 36415; 80048; 84484; 85025; 93005; 96361; 96374; 96376; 99284; 99285; J2270

== ENCOUNTER → 2021-10-08 12:44 | Outpatient (BNVA) | payer OTHER, SELFPAY | PROVIDERS: PCP Physician Assistant; Visit Provider Anesthesiology | DX: G89.4 Chronic pain syndrome (principal); M47.816 Spondylosis without myelopathy or radiculopathy, lumbar region; G60.9 Hereditary and idiopathic neuropathy, unspecified | CPT/HCPCS: 99212 ==

== ENCOUNTER → 2021-10-17 09:18 | Outpatient (BNVA) | payer OTHER, SELFPAY | PROVIDERS: PCP Physician Assistant; Visit Provider Anesthesiology | DX: G89.4 Chronic pain syndrome (principal); M47.816 Spondylosis without myelopathy or radiculopathy, lumbar region; G60.9 Hereditary and idiopathic neuropathy, unspecified; Z96.82 Presence of neurostimulator; Z98.890 Other specified postprocedural states | CPT/HCPCS: 99212 ==

== ENCOUNTER 2021-10-25 20:05 | Emergency (ER) | payer OTHER, SELFPAY ==
[2021-10-25 20:50] VITALS: BP 118/78; PULSE 78; RESP 18; TEMP 36.6; O2SAT 98; BMI 29.2
--- NOTE | 2021-10-25 23:46 | ED.BACK ---
HPI - Back Pain/Injury General Chief Complaint: Back Pain/Injury Stated Complaint: back pain/ post op Time Seen by Provider: 10/25/21 23:22 Source: patient Mode of arrival: ambulatory Limitations: no limitations History of Present Illness HPI Narrative: Patient chronic back pain status post surgery had a spinal stimulator placed on 10/04 was given some pain medication with he ran out , now complaining of pain in the left paraspinal area no urinary complaints no radiation of pain. No fever no chills Related Data Home Medications Medication Instructions Recorded Confirmed escitalopram oxalate 10 mg tablet 10 mg PO DAILY 02/21/21 10/05/21 hydroxyzine pamoate 50 mg capsule 50 mg PO DAILY PRN 03/09/21 10/05/21 ibuprofen 600 mg tablet 600 mg PO TID PRN 05/17/21 10/05/21 buspirone 5 mg tablet 5 mg PO BID 05/21/21 10/05/21 oxycodone-acetaminophen 5 mg-325 1 tab PO Q4H PRN 10/05/21 10/05/21 mg tablet (Percocet) Previous Rx's Medication Instructions Recorded cyclobenzaprine 10 mg tablet 10 mg PO TID PRN 30 Days #90 tab 05/21/21 gabapentin 600 mg tablet 600 mg PO TID 90 Days #270 tab 05/21/21 loratadine 10 mg tablet 10 mg PO DAILY 90 Days #90 tab 05/21/21 omeprazole 40 mg capsule,delayed 40 mg PO DAILY 90 Days #90 cap 05/21/21 release diphenhydramine HCl 25 mg capsule 25 mg PO TID 5 Days #15 cap 08/15/21 (Benadryl) miscellaneous medical supply 1 ea MISCELLANEOUS DAILY 99 Days 08/15/21 #1 ea walker #1 ea 08/15/21 trazodone 100 mg tablet 100 mg PO BEDTIME 90 Days #90 tab 08/22/21 cephalexin 500 mg tablet 1,000 mg PO Q8H 15 Days #90 tab 10/04/21 tramadol 50 mg tablet 50 mg PO BID PRN 7 Days #14 tab 10/22/21 cyclobenzaprine 10 mg tablet 10 mg PO Q8H #20 tab 10/25/21 lidocaine 4 % topical patch 1 patch TOPICAL DAILY PRN #30 ea 10/25/21 oxycodone 5 mg tablet 5 mg PO Q6H PRN #20 tab 10/25/21 Allergies Allergy/AdvReac Type Severity Reaction Status Date / Time No Known Allergies Allergy Verified 10/17/21 09:28 [No Known Allergies*] Review of Systems Review of Systems: Yes all other systems are reviewed and are negative [facility] Past Medical History Medical History Acid reflux Arthropathy of facet joint Chronic pain syndrome Cough, unspecified Idiopathic polyneuropathy NAFLD (nonalcoholic fatty liver disease) PEDRITO on CPAP RLS (restless legs syndrome) Spondylosis of lumbar spine Surgical History History of cholecystectomy History of coronary rotational ablation History of esophagogastroduodenoscopy (EGD) History of lumbar spinal fusion History of shoulder surgery Hx of colonoscopy Family History Family History Father Epilepsia Multiple sclerosis Bedridden Mother HTN (hypertension) Social History Social History Household Members: None Housing: House Are you a primary foster care social worker to a significant other at home: No Alcohol intake: never Patient Tobacco Use Status: Former Tobacco user Quit Date: 2014 Tobacco use type: Cigarette e-Cigarette/Vaping Use: Never Used Second Hand Smoke Exposure: Yes Advance Directives: No service: No Current occupational status: unemployed Current occupation: rt hand Physical Exam Vital Signs: Vital Signs: Last Vital Signs Temp 97.8 F 10/25/21 20:50 Pulse 78 10/25/21 20:50 Resp 18 10/25/21 20:50 BP 118/78 10/25/21 20:50 Pulse Ox 98 10/25/21 20:50 BMI result Body Mass Index 29.2 Appearance: Alert. Oriented X3. No acute distress. ENT: Pharynx normal. Oral Mucosa moist Neck: Normal inspection. Neck supple. CVS: Normal heart rate and rhythm. Pulses normal. Respiratory: No respiratory distress. Equal air entry bilateral, no wheezing/rales/rhonchi Abdomen: Soft and nontender. Bowel sounds are present, no mass palpable, no CVA tenderness Skin: Skin warm and dry. Normal skin color. Normal skin turgor. Extremities: No lower extremity edema. No calf tenderness back: Diffuse tenderness left parasternal area no midline tenderness SLR negative Neuro: Oriented X 3. No motor deficit. No sensory deficit. Antalgic gait MDM - Back Pain/Injury MDM Narrative Medical decision making narrative: Patient has chronic back pain ran out of his medication will give him oxycodone Vika Lala past advised to follow with pain clinic Discharge Plan Discharge Clinical Impression: Chronic low back pain Patient Disposition: Home, Self-Care Instructions: Chronic Back Pain (DC) Additional Instructions: Take pain medication and muscle relaxants as advised And follow with your PCP/Pain Clinic Prescriptions: New oxycodone 5 mg tablet 5 mg PO Q6H PRN (Reason: pain) Qty: 20 0RF cyclobenzaprine 10 mg tablet 10 mg PO Q8H Qty: 20 0RF lidocaine 4 % adhesive patch,medicated 1 patch topical DAILY PRN (Reason: pain) Qty: 30 0RF No Action trazodone 100 mg tablet 100 mg PO BEDTIME 90 Days Qty: 90 1RF cephalexin 500 mg tablet 1,000 mg PO Q8H 15 Days Qty: 90 1RF Rx Instructions: take probiotics OTC in between the doses of the antibiotics tramadol 50 mg tablet 50 mg PO BID PRN (Reason: pain) 7 Days Qty: 14 1RF ibuprofen 600 mg tablet 600 mg PO TID PRN (Reason: Pain) 0RF oxycodone-acetaminophen [Percocet] 5-325 mg Tablet 1 tab PO Q4H PRN (Reason: Pain) 0RF buspirone 5 mg tablet 5 mg PO BID 0RF cyclobenzaprine 10 mg tablet 10 mg PO TID PRN (Reason: muscle spasm) 30 Days Qty: 90 0RF gabapentin 600 mg tablet 600 mg PO TID 90 Days Qty: 270 1RF omeprazole 40 mg capsule,delayed release(DR/EC) 40 mg PO DAILY 90 Days Qty: 90 1RF loratadine 10 mg tablet 10 mg PO DAILY 90 Days Qty: 90 1RF hydroxyzine pamoate 50 mg capsule 50 mg PO DAILY PRN (Reason: Anxiety) 0RF miscellaneous medical supply Misc 1 ea miscellaneous DAILY 99 Days Qty: 1 0RF (DME) ashlie Misc See Rx Instructions .Route Qty: 1 0RF Rx Instructions: As directed diphenhydramine HCl [Benadryl] 25 mg capsule 25 mg PO TID 5 Days Qty: 15 0RF Rx Instructions: Advised to hold hydroxyzine while on Benadryl escitalopram oxalate 10 mg tablet 10 mg PO DAILY 0RF
[2021-10-26] MEDS: Cyclobenzaprine HCl 10 MG TABLET PO (00:10)
[2021-10-26] MEDS: oxyCODONE HCl Immed Release 5 MG TABLET 10 MG PO (00:10)
[2021-10-26] MEDS: Lidocaine 4 % Patch ADH..PATCH 1 PATCH TRANSDERMA (00:11)
[2021-10-26 00:13] VITALS: BP 119/77; PULSE 86; RESP 16; TEMP 36.6; O2SAT 99
== END 2021-10-26 00:16 | disposition home or self-care (01) ==
PROVIDERS: Emergency Provider Internal Medicine; PCP Physician Assistant
DX: M54.50 Low back pain, unspecified (principal); Z79.899 Other long term (current) drug therapy; Z87.891 Personal history of nicotine dependence
CPT/HCPCS: 99283; 99284

== ENCOUNTER → 2021-11-01 11:18 | Outpatient (BNVA) | payer OTHER, SELFPAY | PROVIDERS: PCP Physician Assistant; Visit Provider Nurse Practitioner Family | DX: Z48.01 Encounter for change or removal of surgical wound dressing (principal); G89.4 Chronic pain syndrome; M47.816 Spondylosis without myelopathy or radiculopathy, lumbar region; G60.9 Hereditary and idiopathic neuropathy, unspecified; M96.1 Postlaminectomy syndrome, not elsewhere classified; Z96.89 Presence of other specified functional implants | CPT/HCPCS: 99212 ==

== ENCOUNTER → 2021-11-12 10:45 | Outpatient (REF) | payer OTHER, SELFPAY ==
--- NOTE | 2021-11-12 10:55 | HM_ITS ---
Conclusion: 1. Patient was monitored for total period of 2 days and 23 hours 2. Baseline rhythm was normal sinus rhythm with average heart of 93 beats per minute with frequent sinus tachycardia, 35% of time 3. No significant pauses or bradycardia noted 4. Total of 7833 PVCs accounting for 1.95% of total beats accounting for frequent PVCs, unifocal 5. No patient reported events MTDD
== END ==
LOC: HO.CARD 10:45
PROVIDERS: PCP Physician Assistant; Visit Provider Physician Assistant
DX: R00.2 Palpitations (principal); R00.0 Tachycardia, unspecified
CPT/HCPCS: 93242

== ENCOUNTER 2021-12-31 14:15 | Outpatient (REF) | payer OTHER, SELFPAY ==
--- NOTE | ~2021-12-31 | XR_ITS ---
EXAMINATION: XR FOOT, LEFT CLINICAL INFORMATION: Superficial foreign body left foot. COMPARISON: None. TECHNIQUE: AP, lateral, and oblique views of the left foot. FINDINGS: There is no evidence of acute fracture or dislocation of the left foot. No significant soft tissue swelling is appreciated. No radiopaque foreign body is seen. No gas within the soft tissues is identified. XR/XR foot LT 2V IMPRESSION: No significant bony abnormality of the left foot identified. No radiopaque foreign body seen.
== END 2021-12-31 14:16 | disposition home or self-care (01) ==
LOC: HO.XRAY 14:15
PROVIDERS: PCP Physician Assistant; Visit Provider Surgery
DX: S90.852A Superficial foreign body, left foot, initial encounter (principal)
CPT/HCPCS: 73620; 99202

== ENCOUNTER → 2022-02-19 08:35 | Outpatient (BNVA) | payer OTHER, SELFPAY | PROVIDERS: PCP Physician Assistant; Referring Provider Physician Assistant; Visit Provider Internal Medicine | DX: I49.3 Ventricular premature depolarization (principal) | CPT/HCPCS: 99212 ==

== ENCOUNTER → 2022-03-04 09:28 | Outpatient (BNVA) | payer OTHER, SELFPAY | PROVIDERS: PCP Physician Assistant; Visit Provider Anesthesiology | DX: M47.816 Spondylosis without myelopathy or radiculopathy, lumbar region (principal); G89.4 Chronic pain syndrome; M47.819 Spondylosis without myelopathy or radiculopathy, site unspecified; G60.9 Hereditary and idiopathic neuropathy, unspecified | CPT/HCPCS: 99212 ==

== ENCOUNTER 2022-03-05 14:03 | Outpatient (REF) | payer OTHER, SELFPAY ==
--- NOTE | ~2022-03-05 | XR_ITS ---
EXAMINATION: XR thoracic spine 3V, XR lumbar spine 4V min CLINICAL INFORMATION: Other mechanical complication of implanted electronic neurostimulator COMPARISON: Chest CT 02/07/2022 TECHNIQUE: AP and lateral views of the lumbar spine with an additional coned down lateral spot view of the lumbosacral junction. FINDINGS: 5 non-rib bearing lumbar type vertebral bodies are seen. Intervertebral disc spacer with anterior fusion at L5-S1. Normal sagittal alignment of the lumbar spine. Vertebral body and disc heights are maintained. Posterior elements intact. There is a posterior spinal stimulator in the left buttock/posterior paravertebral soft tissues with 2 leads that enter the central canal at the level of the L1-L2 disc space. The most cephalad electrode terminates at the level of the inferior endplate of T7. Normal sagittal alignment of the thoracic spine. Right upper quadrant cholecystectomy clips. Thoracic vertebral body and disc heights are maintained. XR/XR thoracic spine 3V IMPRESSION: Postoperative changes at L5-S1. Spinal stimulator as described above.
--- NOTE | ~2022-03-05 | XR_ITS ---
EXAMINATION: XR thoracic spine 3V, XR lumbar spine 4V min CLINICAL INFORMATION: Other mechanical complication of implanted electronic neurostimulator COMPARISON: Chest CT 02/07/2022 TECHNIQUE: AP and lateral views of the lumbar spine with an additional coned down lateral spot view of the lumbosacral junction. FINDINGS: 5 non-rib bearing lumbar type vertebral bodies are seen. Intervertebral disc spacer with anterior fusion at L5-S1. Normal sagittal alignment of the lumbar spine. Vertebral body and disc heights are maintained. Posterior elements intact. There is a posterior spinal stimulator in the left buttock/posterior paravertebral soft tissues with 2 leads that enter the central canal at the level of the L1-L2 disc space. The most cephalad electrode terminates at the level of the inferior endplate of T7. Normal sagittal alignment of the thoracic spine. Right upper quadrant cholecystectomy clips. Thoracic vertebral body and disc heights are maintained. XR/XR lumbar spine 4V min IMPRESSION: Postoperative changes at L5-S1. Spinal stimulator as described above.
== END 2022-03-05 14:04 | disposition home or self-care (01) ==
LOC: HO.XRAY 14:03
PROVIDERS: PCP Physician Assistant; Visit Provider Anesthesiology
DX: T85.192A Other mechanical complication of implanted electronic neurostimulator of spinal cord electrode (lead), initial encounter (principal)
CPT/HCPCS: 72072; 72110

== ENCOUNTER → 2022-04-03 10:37 | Outpatient (BNVA) | payer OTHER, SELFPAY | PROVIDERS: PCP Physician Assistant; Visit Provider Anesthesiology | DX: M47.816 Spondylosis without myelopathy or radiculopathy, lumbar region (principal); G89.4 Chronic pain syndrome; G60.9 Hereditary and idiopathic neuropathy, unspecified; S97.01XA Crushing injury of right ankle, initial encounter | CPT/HCPCS: 99212 ==